=== PATIENT | female | born 1950 | race Caucasian/White ===

== ENCOUNTER → 2022-05-29 | Outpatient (CLI) | payer OTHER, MEDICARE, SELFPAY ==
[2022-05-29 10:52] LABS: Absolute Lymphocyte Count 2.28 X10^3/uL (0.83-4.51); Absolute Neutrophil Count 3.3 X10^3/uL (2.0-7.7); Basophil# 0.11 X10^3/uL; Basophil% 1.6 % (0-1); Eosinophil# 0.66 X10^3/uL; Eosinophils% 9.6 % (0-5); Hematocrit 37.5 % (37-47); Hemoglobin 12.3 g/dL (12.0-15.0); Lymphocyte # 2.28 X10^3/ul (0.83-4.51); Mean Corp Hgb Conc 32.8 g/dL (32-36); Mean Corpuscular Hgb 29.6 pg (27.0-32.0); Mean Corpuscular Volume 90.4 fL (81-99); Monocyte# 0.53 X10^3/uL; Monocyte% 7.7 % (0-10); NRBC Flagged by Analyzer 0 % (0-5); Neutrophil % 47.7 % (47-70); Platelet Count 264 K/mm3 (150-450); RBC Distribution Width CV 13.2 % (11.6-14.6); RBC Distribution Width SD 43.8 fl (35.1-43.9); Red Blood Count 4.15 M/mm3 (4.2-5.4); White Blood Count 6.9 K/mm3 (4.4-11.0)
[2022-05-29 10:55] LABS: Erythrocyte Sedimentation Rate 5 mm/hr (0-30)
[2022-05-29 11:27] LABS: ALB/GLOB Ratio 1.1 RATIO (0.9-2.4); AST(SGOT) 15 U/L (15-37); Alanine Aminotransfer ALT/SGPT 16 U/L (13-56); Albumin, Serum 3.9 g/dL (3.2-5.0); Alkaline Phosphatase 71 U/L (45-117); Anion Gap 5 (5-15); BUN 12 mg/dL (7-18); BUN/Creat Ratio 17.4 RATIO (10-20); CRP < 2.90 mg/L (0.0-3.0); Calcium,Total 9.3 mg/dL (8.5-10.1); Chloride 103 mmol/L (98-107); Creatinine, Serum 0.69 mg/dL (0.55-1.02); EST Glomerular Filtration Rate 89 mL/min (>60); Est Glom Filt Rate - Afr Amer 107 mL/min (>60); Globulin 3.6 g/dL (2.2-4.2); Glucose 92 mg/dL (74-106); LDH 146 U/L (84-246); Potassium 4.2 mmol/L (3.5-5.1); Protein, Total 7.5 g/dL (6.4-8.2); Sodium Level 139 mmol/L (136-145)
[2022-05-29 11:28] LABS: Rubella IgG Reactive (Nonreactive)
[2022-05-30 16:09] LABS: Anti-Centromere B Ab <0.2 AI (0.0-0.9); Anti-Chromatin <0.2 AI (0.0-0.9); Anti-Jo <0.2 AI (0.0-0.9); Anti-Scleroderma-70 AB <0.2 AI (0.0-0.9); RNP Ab <0.2 AI (0.0-0.9); SJOGREN'S Anti-SS-A test < 0.2 AI (0.0-0.9); SJOGREN'S Anti-SS-B test < 0.2 AI (0.0-0.9); Smith Ab <0.2 AI (0.0-0.9)
[2022-05-30 18:30] LABS: Anti-dsDNA Ab <1 IU/mL (0-9)
[2022-06-01 15:08] LABS: Endomysial Antibody IgA Negative (Negative)
[2022-06-01 16:46] LABS: Immunoglobulin A 187 mg/dL (64-422); t-Transglutaminase IgA <2 U/mL (0-3)
[2022-06-02 15:08] LABS: Alpha-1-Globulins 0.2 g/dL (0.0-0.4); Alpha-2-Globulins 0.9 g/dL (0.4-1.0); Cytoplasmic Ab (C-ANCA) <1:20 titer (Neg:<1:20); Gamma Globulin 1.2 g/dL (0.4-1.8); Immunoglobulin A 197 mg/dL (64-422); Immunoglobulin E 35 IU/mL (6-495); Immunoglobulin G 1120 mg/dL (586-1602); Immunoglobulin M 42 mg/dL (26-217); PROEL- TOTAL PROTEIN 7.2 g/dL (6.0-8.5); QNTFERON TB Mitogen Value > 10.00 IU/mL (.); QNTFERON TB Nil Value 0.04 IU/mL (.); QNTFERON TB1+ Ag Value 0.11 IU/mL (.); QNTFERON TB2+ Ag Value 0.12 IU/mL (.)
[2022-06-03 08:13] LABS: B. pertussis IgG 5.57 index (0.00-0.94); Mumps Antibody, IgM < 0.80 AU (0.00-0.79); Perinuclear Ab (P-ANCA) <1:20 titer (Neg:<1:20); QNTIFERON TB Positive Criteria Negative (Negative); V-Zoster IgG (Immunity) 1106 index (Immune >165)
== END | disposition home or self-care (01) ==
PROVIDERS: PCP Family Medicine; Referring Provider Internal Medicine Gastroenterology; Visit Provider Internal Medicine Gastroenterology
DX: K51.90 Ulcerative colitis, unspecified, without complications (principal)
CPT/HCPCS: 36415; 80053; 82784; 82785; 83516; 83615; 84165; 85025; 85652; 86140; 86225; 86235; 86255; 86256; 86334; 86480; 86615; 86735; 86762; 86787

== ENCOUNTER → 2022-06-08 | Outpatient (CLI) | payer OTHER, MEDICARE, SELFPAY ==
[2022-06-11 13:05] LABS: Calprotectin, Stool 49 ug/g (0-120)
[2022-06-13 08:54] LABS: Pancreatic Elastase, Fecal 184 (>200)
== END | disposition home or self-care (01) ==
PROVIDERS: PCP Family Medicine; Referring Provider Internal Medicine Gastroenterology; Visit Provider Internal Medicine Gastroenterology
DX: K51.90 Ulcerative colitis, unspecified, without complications (principal)
CPT/HCPCS: 82653; 83630; 83993; 87177; 87209; 87329

== ENCOUNTER 2022-06-19 19:35 | Emergency (ER) | payer MEDICARE, OTHER, SELFPAY ==
[2022-06-19 19:36] VITALS: BP 142/104; PULSE 78; RESP 16; TEMP 36.6; O2SAT 98; BMI 26.9
--- NOTE | 2022-06-19 21:00 | ED.RN ---
AT APPROX 1999 PT NOTIFIED THIS RN THAT ALL PAIN HAD SUBSIDED, NOW THINKS SYMPTOMS MAY BE RELATED TO NEW MEDICATION. STATES HER SYMPTOMS ARE LISTED IN MED HANDOUT SIDE EFFECTS
== END 2022-06-19 20:00 | disposition left against medical advice (07) ==
LOC: ED 21:08
PROVIDERS: PCP Family Medicine
DX: Z53.21 Procedure and treatment not carried out due to patient leaving prior to being seen by health care provider (principal)

== ENCOUNTER → 2022-07-06 | Outpatient (CLI) | payer OTHER, MEDICARE, SELFPAY ==
--- NOTE | 2022-07-06 13:12 | MRI_ITS ---
STUDY: MR PELVIS WITH T WITHOUT CONTRAST REASON FOR EXAM: Female, 71 years old. Rectal and bladder prolapse. TECHNIQUE: Standardized fat and water weighted pulse sequences were obtained in all 3 orthogonal planes, pre-and post contrast administration. IV 15cc clariscan was administered for the contrast portion of the examination. COMPARISON: None. FINDINGS: Urinary bladder is grossly normal. There is minimal prolapse below Drawn between the inferior aspect of the symphysis pubis and the tip of the coccyx. This extends 8 mm below this line. There is no evidence of mass. Normal visualized small intestine. There is evidence of rectal prolapse which extends 4.8 cm below the above-mentioned alignment. The patient is status post hysterectomy. There is vaginal prolapse of 2 cm. There is no pelvic fluid. There is soft tissue masses along the bilateral pelvic sidewalls thought to be retained ovaries. Normal visualized pelvic arteries. Normal osseous structures. Normal abdominal wall. MRI/Pelvis W/WO Contrast IMPRESSION: 1. Evidence of bladder prolapse, vaginal prolapse and rectal prolapse as above. 2. Status post hysterectomy. There are retained ovaries. Electronically Signed: Loco Munoz DO at 20:06 EDT Reading Location ID and State: [address] [place] [address] Tel [phone], Service support ,
[2022-07-06 17:55] LABS: EGFR FINGERSTICK > 60.0000 mL/min (>60)
== END | disposition home or self-care (01) ==
PROVIDERS: PCP Family Medicine; Referring Provider Internal Medicine Gastroenterology; Visit Provider Internal Medicine Gastroenterology
DX: K51.90 Ulcerative colitis, unspecified, without complications (principal)
CPT/HCPCS: 72197; A9575

== ENCOUNTER 2022-07-23 05:08 | Day surgery (SDC) | payer OTHER, MEDICARE, SELFPAY ==
[2022-07-23] VITALS (7 sets, daily range): BP systolic 109–164; BP diastolic 62–76; PULSE 54–64; RESP 16–18; TEMP 36.1–36.6; O2SAT 96–100; BMI 25.9
--- NOTE | 2022-07-23 | IMM_PTH ---
PATIENT: DEANDRE MONTIEL LOC: EN U#:[id number] AGE/SX: 71/F ROOM: RE07/23/[address]: Dr. Miguel A Godoy DO : 1950 BED: DIS: 07/23/2022 SPEC #: [id number] RECD: 07/24/22 13:30 STATUS: NEGRO REQ #: [id number] YENIFER: 07/23/22 00:[address]: Miguel A Godoy DEPT: IMMUNOHISTOCHEMISTRY RECD BY: Francine Cifuentes ENTERED: 07/24/22 13:31 SP TYPE: IMMUNO OTHR DR: Dr. Juan Shearer MD Tissues: B - Esophagus, NOS Procedures: P53 (initial) KI-67 (add) PHYSICIAN & INSTITUTION [place] [address] SPECIMEN INFORMATION: Tissue Source: B ? Distal esophagus Clinical Info: Ulcerative colitis, GERD Specimen Number: [id number] CPT code: 30133, 50910 METHODOLOGY: Deparaffinized sections of prefer/formalin-fixed tissue or PAP/DQ stained slides are incubated with monoclonal/polyclonal antibodies/oligonucleotide probes. Localization is made via biotin free immunoperoxidase method. Appropriate controls are performed and reacted as expected. Results on target cell population are indicated in the following table: RESULTS: ANTIBODY / CLONE RESULT Block B P53 (DO-7) negative (null pattern) Ki-67 (30-9) positive, very low These tests were developed and their performance characteristics determined by [facility]. They may not have been cleared or approved by the U.S. Food and Drug Administration. The FDA has determined that such clearance or approval is not necessary. The above immunohistochemical/dualISH markers are ordered and reviewed by the Pathologist. INTERPRETATION: B. Distal esophagus, biopsy: Negative for dysplasia. SJ:huseyin 07/27/2022
[2022-07-23] MEDS: Lactated Ringers 1,000 ML 15 ML IV (05:45)
[2022-07-23 06:16] LABS: Bedside Glucose 129 mg/dL (74-106)
--- NOTE | 2022-07-23 06:30 | COLBX_PTH ---
PATIENT: DEANDRE MONTIEL LOC: EN U#:[id number] AGE/SX: 71/F ROOM: RE07/23/[address]: Dr. Miguel A Godoy DO : 1950 BED: DIS: 07/23/2022 SPEC #: [id number] RECD: 07/23/22 10:41 STATUS: NEGRO CLIFF #: [id number] YENIFER: 07/23/22 06:[address]: Miguel A Godoy DEPT: SURGICAL PATHOLOGY RECD BY: Thomas Wise ENTERED: 07/23/22 12:14 SP TYPE: COLON BX OTHR DR: Dr. Juan Shearer MD Tissues: A - Duodenum, NOS B - Esophagus, NOS C - Ileum, NOS D - Cecum, NOS E - Ascending colon F - Transverse colon G - Descending colon H - Sigmoid colon biopsy I - Rectum, NOS Procedures: Special Stain Group II Surgery Specimen Level IV Alcian Blue/PAS (control) HEADER OPERATION: Colonoscopy with biopsy, polypectomy, EGD with biopsies PRE-OP DIAGNOSIS: Ulcerative colitis, GERD TISSUE SUBMITTED: A - Duodenum biopsy, B - Distal esophagus biopsy, C - Terminal ileum, D - Cecal polyp, E - Ascending colon biopsy, F - Transverse colon biopsy, G - Descending colon biopsy, H - Sigmoid colon biopsy, I - Rectum biopsy MICROSCOPIC DIAGNOSIS A. Duodenum, biopsy: Fragments of duodenal mucosa, no pathologic diagnosis. B. Distal esophagus, biopsy: Fragments of gastroesophageal mucosa with focal intestinal metaplasia (goblet cell metaplasia), consistent with Alexander's esophagus. Chronic inflammation. Negative for dysplasia. See comment. C. Terminal ileum, biopsy: Fragments of small intestinal mucosa, no pathologic diagnosis. D. Cecal polyp, biopsy: Fragments of tubular adenoma. E. Ascending colon, biopsy: Fragments of colonic mucosa, no pathologic diagnosis. F. Transverse colon, biopsy: Fragments of colonic mucosa, no pathologic diagnosis. G. Descending colon, biopsy: Fragments of colonic mucosa, no pathologic diagnosis. H. Sigmoid colon, biopsy: Fragments of colonic mucosa, no pathologic diagnosis. I. Rectum, biopsy: Fragments of colonic mucosa, no pathologic diagnosis. SJ:huseyin 07/24/2022 COMMENT B. Alcian blue/PAS stain with matched control is used in the evaluation of the specimen. Immunohistochemistry ([id number]) for P53 and Ki-67 will be performed and results will be reported separately. Correlation with clinical, endoscopic findings and appropriate follow up are necessary. MICROSCOPIC DESCRIPTION Slides are reviewed. GROSS DESCRIPTION A - Received in fixative is one container labeled with the patient's name and designated duodenum biopsy. The specimen consists of multiple irregular fragments of light gomez soft tissue that in aggregate measure 0.7 x 0.5 x 0.1 cm. The specimen is totally submitted in one cassette. B - Received in fixative is one container labeled with the patient's name and designated distal esophagus. The specimen consists of multiple irregular fragments of light gomez soft tissue that in aggregate measure 0.5 x 0.2 x 0.1 cm. The specimen is totally submitted in one cassette. C - Received in fixative is one container labeled with the patient's name and designated terminal ileum. The specimen consists of two irregular fragments of light gomez soft tissue that in aggregate measure 0.6 x 0.3 x 0.1 cm. The specimen is totally submitted in one cassette. D - Received in fixative is one container labeled with the patient's name and designated cecal polyp. The specimen consists of multiple irregular fragments of light gomez soft tissue that in aggregate measure 1.0 x 0.2 x 0.1 cm. The specimen is totally submitted in one cassette. E - Received in fixative is one container labeled with the patient's name and designated ascending colon biopsy. The specimen consists of multiple irregular fragments of light gomez soft tissue that in aggregate measure 1.0 x 0.5 x 0.1 cm. The specimen is totally submitted in one cassette. F - Received in fixative is one container labeled with the patient's name and designated transverse colon biopsy. The specimen consists of multiple irregular fragments of light gomez soft tissue that in aggregate measure 2.0 x 1.0 x 0.1 cm. The specimen is totally submitted in one cassette. G - Received in fixative is one container labeled with the patient's name and designated descending colon biopsy. The specimen consists of multiple irregular fragments of light gomez soft tissue that in aggregate measure 1.5 x 1.0 x 0.1 cm. The specimen is totally submitted in one cassette. H - Received in fixative is one container labeled with the patient's name and designated sigmoid colon biopsy. The specimen consists of multiple irregular fragments of light gomez soft tissue that in aggregate measure 1.5 x 0.1 x 0.1 cm. The specimen is totally submitted in one cassette. I - Received in fixative is one container labeled with the patient's name and designated rectum biopsy. The specimen consists of multiple irregular fragments of light gomez soft tissue that in aggregate measure 1.0 x 1.0 x 0.1 cm. The specimen is totally submitted in one cassette. / AM:huseyin 07/23/2022 TC:3 CPT: 49438 x9, 17946
--- NOTE | 2022-07-23 06:32 | PCM.HP.BLA ---
History and Physical Date of Admission: 07/23/22 71 F who presents to the office today for PMH CAD, anxiety/depression, heart murmur, NC, subdural hematoma, obstructive cardiomyopathy, HTN, neurogenic bladder, osteoarthritis, RA, DMII with polyneuropathy. PCP OV 08.14.21 for issues to include increased diarrhea frequency for 3-4 months. ?Biochemical? CMP, CBC, Urine without pertinent abnormality. ? Triglycerides H171, A1c H6.8, VLDL H34 *BGI established 05.29.22. History of ulcerative colitis diagnosed at age 29; she had been having issues since puberty and it is suspected this was the cause at that time. She was diagnosed following miscarriage r/t underlying medical conditions and was found to have UC in this workup. History asacol, hydrocor azulfadine, prednisone used previously but this upset her stomach. She experienced an improvement of rectal bleeding and did not seek further management. During time without treatment she had Q6M colonoscopies with small area of inflammation. During this time, she had minimal symptoms, but did not resolve completely. Current symptoms include loose stools varying up to ten times a day with recent involvement of nocturnal presentation, rectal bleeding is noted (she feels r/t hemorrhoids), abdominal pain noted approximately a month prior, infrequent nausea without emesis. GERD has also been a historical issue with a history of gastric ulcers. ? Last colonoscopy with one small area of inflammation. History of polyps. ROS Const Constitutional: No anorexia, fatigue, fever(s), weight change or sleep problems Eyes Eyes: No change in vision ENT ENT: No abnormal hearing, difficulty swallowing, mouth lesions, tongue swelling or throat swelling Resp Respiratory: No cough or shortness of breath Cardio Cardiology: No chest pain at rest, chest pain with exertion, shortness of breath or dyspnea on exertion Gastro GI: No difficulty swallowing Genitourinary-Female: No difficulty urinating or burning urination Musc Musculoskeletal: No joint pain, joint swelling, muscle weakness or decreased muscle mass Skin Skin: No hair loss in leg, yellowing of the eye, itchy eyes, rash, skin ulcer or skin swelling Neuro Neurology: No abnormal hearing, abnormal movements, confusion, unsteady gait/balance or memory loss Psych Psychiatric: No anxiety, No confusion and No memory loss Endo Endocrine: No fatigue or weight change Aller/Imm Allergy/Immunologic: No itchy eyes, throat swelling or tongue swelling Thomas/Lymp Hematologic/Lymphatic: No easy bleeding, easy bruising or enlarged lymph nodes Exam Const General: cooperative and comfortable Nutritional Appearance: average body habitus and well nourished [facility] Head: normal to inspection Ears: hearing grossly normal bilaterally Nose: external nose normal Face and sinus: normal facial exam Mouth: oral mucosae normal Throat: posterior oropharynx normal Eyes General: appearance normal, both eyes and all related structures Neck Neck: normal visual inspection Chest Chest palpation & inspection: normal inspection of the chest and normal palpation of entire chest wall Resp Effort & Inspection: normal respiratory effort Auscultation: Bilateral: Clear to Auscultation Cardio Palpation: normal PMI Rate: regular rate Rhythm: regular rhythm GI Inspection: normal to inspection Auscultation: normal bowel sounds Percussion: normal to percussion Palpation: no hepatosplenomegaly Skin General: no rashes or lesions noted Neuro General: patient alert Extrem General: normal to inspection Psych Affect: normal affect Quality Reporting Tobacco Screening ([facility] 138) Smoking Status: Never smoker Assessment and Plan Assessment and Plan (1) Ulcerative colitis: ?Status:?Chronic ?Plan: History of ulcerative colitis which sounds like ulcerative proctitis.? She is having more than 6-8 bowel movements a day.? She has not been tested for infection.? She is on mesalamine but that does not, diarrhea.? She has tried topical therapy which is also been unsuccessful.? She will need to have a colonoscopy to evaluate his lower GI tract.? She was explained alternatives, risk, benefits including outstanding bleeding, infection, sepsis, perforation, need for urgent .? Show an ASA of 1. (2) GERD (gastroesophageal reflux disease): ?Status:?Chronic ?Plan: Continue famotidine as needed.? When she undergoes upper endoscopy we will evaluate her for Alexander's esophagus. ? ? ? Orders: Orders Comprehensive Metabolic Profil Today K51.90 - Ulcerative colitis, unspecified, without complications ? CRP Today K51.90 - Ulcerative colitis, unspecified, without complications ? LDH Today K51.90 - Ulcerative colitis, unspecified, without complications ? CBC W/Diff, Automated Today - Ulcerative colitis, unspecified, without complications ? Erythrocyte Sed Rate Today - Ulcerative colitis, unspecified, without complications ? NAFISA Comprehensive Panel Today - Ulcerative colitis, unspecified, without complications ? Calprotectin, Stool Today - Ulcerative colitis, unspecified, without complications ? OVA+PARA w/Giardia EIA [id number] Today - Ulcerative colitis, unspecified, without complications ? CDIFF (PCR) Today - Ulcerative colitis, unspecified, without complications ? ENTERIC PATHOGEN PANEL STOOL Today - Ulcerative colitis, unspecified, without complications, K58.9 - Irritable bowel syndrome without diarrhea ? Stool Lactoferrin/WBC Today - Ulcerative colitis, unspecified, without complications ? ANCA Today - Ulcerative colitis, unspecified, without complications ? Celiac Disease Profile Today - Ulcerative colitis, unspecified, without complications ? Immunoglobulins G/A/M/E Today - Ulcerative colitis, unspecified, without complications ? TIFFANIE + Protein Elect, Serum Today - Ulcerative colitis, unspecified, without complications ? Pancreatic Elastase, Fecal Today - Ulcerative colitis, unspecified, without complications ? Miscellaneous Lab Procedure Today - Ulcerative colitis, unspecified, without complications ? Abdomen/Pelvis WITH Contrast Today - Ulcerative (chronic) proctitis with unspecified complications ? Pelvis W/WO Contrast Today - Ulcerative colitis, unspecified, without complications ? Rubella IgG Today - Ulcerative colitis, unspecified, without complications ? Mumps Antibody, IgM Today - Ulcerative colitis, unspecified, without complications ? B. pertussis IgG Today - Ulcerative colitis, unspecified, without complications ? Quantiferon TB-Gold+ Today - Ulcerative colitis, unspecified, without complications ? V-Zoster IgG (Immunity) Today - Ulcerative colitis, unspecified, without complications ? I have examined the patient and the H&P has been reviewed. There are no clinical changes since date of exam.
--- NOTE | 2022-07-23 07:11 | OP.CCLET_ITS ---
07/23/2022 Juan Shearer MD Re : Upper GI endoscopy procedure for Slime Magana Dear Dr. Shearer This procedure was performed on July. My impressions and recommendations are as follows: Impressions : - Z-line irregular, 37 cm from the incisors. Biopsied. - Normal stomach. - Erythematous duodenopathy. Biopsied. Recommendations : - Discharge patient to home. - Resume previous diet. - Continue present medications. - Await pathology results. My findings are described in the full procedure note, which is enclosed. If I can be of further assistance, please feel free to contact me at . Sincerely, Miguel A Godoy, 07/23/2022 7:10:05 AM This report has been signed electronically.
--- NOTE | 2022-07-23 07:11 | OP.EGD_ITS ---
Patient Name: Slime Magana Procedure Date: 07/23/2022 6:16 AM Date of : 1950 Age: 71 Procedure: Upper GI endoscopy Indications: Heartburn Providers: Miguel A Godoy DO Referring MD: Miguel A Godoy DO Medicines: Monitored Anesthesia Care Patient Profile: This is a 71 year old female. Refer to note in patient chart for documentation of history and physical. Patient has symptoms of chronic heartburn and chronic nausea. Complications: No immediate complications. Procedure: Pre-Anesthesia Assessment: - Prior to the procedure, a History and Physical was performed, and patient medications and allergies were reviewed. The risks and benefits of the procedure and the sedation options and risks were discussed with the patient. All questions were answered and informed consent was obtained. Patient identification and proposed procedure were verified by the physician in the pre-procedure area. Mental Status Examination: normal. Respiratory Examination: clear to auscultation. CV Examination: normal. Prophylactic Antibiotics: The patient does not require prophylactic antibiotics. Prior Anticoagulants: The patient has taken no previous anticoagulant or antiplatelet agents. After reviewing the risks and benefits, the patient was deemed in satisfactory condition to undergo the procedure. The anesthesia plan was to use monitored anesthesia care (MAC). Immediately prior to administration of medications, the patient was re-assessed for adequacy to receive sedatives. The heart rate, respiratory rate, oxygen saturations, blood pressure, adequacy of pulmonary ventilation, and response to care were monitored throughout the procedure. The physical status of the patient was re-assessed after the procedure. After obtaining informed consent, the endoscope was passed under direct vision. Throughout the procedure, the patient's blood pressure, pulse, and oxygen saturations were monitored continuously. The Colonoscope was introduced through the mouth, and advanced to the second part of duodenum. The upper GI endoscopy was accomplished without difficulty. The patient tolerated the procedure well. Scope In: 6:41:14 AM Scope Out: 6:45:02 AM Total Procedure Duration Time 0 hours 3 minutes 48 seconds Findings: The Z-line was irregular and was found 37 cm from the incisors. Biopsies were taken with a cold forceps for histology. Verification of patient identification for the specimen was done. Estimated blood loss was minimal. The entire examined stomach was normal. The cardia and gastric fundus were normal on retroflexion. Diffuse mildly erythematous mucosa without active bleeding and with no stigmata of bleeding was found in the duodenal bulb. Biopsies were taken with a cold forceps for histology. Verification of patient identification for the specimen was done. Estimated blood loss was minimal. Impression: - Z-line irregular, 37 cm from the incisors. Biopsied. - Normal stomach. - Erythematous duodenopathy. Biopsied. Recommendation: - Discharge patient to home. - Resume previous diet. - Continue present medications. - Await pathology results. Procedure Code(s): --- Professional --- 41823, Esophagogastroduodenoscopy, flexible, transoral; with biopsy, single or multiple CPT copyright 2017 [employer]. All rights reserved. The codes documented in this report are preliminary and upon electrical foreman review may be revised to meet current compliance requirements. Miguel A Godoy DO 07/23/2022 7:10:05 AM This report has been signed electronically. Number of Addenda: 0 Note Initiated On: 07/23/2022 6:16 AM
--- NOTE | 2022-07-23 07:15 | OP.COLON_ITS ---
Patient Name: Slime Magana Procedure Date: 07/23/2022 6:45 AM Date of : 1950 Age: 71 Procedure: Colonoscopy Indications: Ulcerative colitis Providers: Miguel A Godoy DO Referring MD: Miguel A Godoy DO Medicines: Monitored Anesthesia Care Patient Profile: This is a 71 year old female. Refer to note in patient chart for documentation of history and physical. Patient has symptoms of chronic heartburn and chronic nausea. Last Colonoscopy: date unknown. Unable to locate last colonoscopy report. Complications: No immediate complications. Procedure: Pre-Anesthesia Assessment: - Prior to the procedure, a History and Physical was performed, and patient medications and allergies were reviewed. The risks and benefits of the procedure and the sedation options and risks were discussed with the patient. All questions were answered and informed consent was obtained. Patient identification and proposed procedure were verified by the physician in the pre-procedure area. Mental Status Examination: normal. Respiratory Examination: clear to auscultation. CV Examination: normal. Prophylactic Antibiotics: The patient does not require prophylactic antibiotics. Prior Anticoagulants: The patient has taken no previous anticoagulant or antiplatelet agents. After reviewing the risks and benefits, the patient was deemed in satisfactory condition to undergo the procedure. The anesthesia plan was to use monitored anesthesia care (MAC). Immediately prior to administration of medications, the patient was re-assessed for adequacy to receive sedatives. The heart rate, respiratory rate, oxygen saturations, blood pressure, adequacy of pulmonary ventilation, and response to care were monitored throughout the procedure. The physical status of the patient was re-assessed after the procedure. After I obtained informed consent, the scope was passed under direct vision. Throughout the procedure, the patient's blood pressure, pulse, and oxygen saturations were monitored continuously. The Colonoscope was introduced through the anus and advanced to the terminal ileum. The colonoscopy was performed without difficulty. The patient tolerated the procedure well. The quality of the bowel preparation was adequate. Scope In: 6:48:04 AM Scope Withdrawal Time 0 hours 14 minutes 2 seconds Scope Out: 7:05:25 AM Total Procedure Duration Time 0 hours 17 minutes 21 seconds Findings: The perianal and digital rectal examinations were normal. Inflammation was found as patches surrounded by normal mucosa in the rectum, in the recto-sigmoid colon, in the sigmoid colon, in the descending colon, in the splenic flexure and in the transverse colon. This was graded as Meier Score 1 (mild, with erythema, decreased vascular pattern, mild friability), and when compared to the previous examination, the findings are in remission. Biopsies were taken with a cold forceps for histology. Verification of patient identification for the specimen was done. Estimated blood loss was minimal. Two sessile polyps were found in the cecum. The polyps were 1 to 2 mm in size. These polyps were removed with a hot snare. Resection and retrieval were complete. Verification of patient identification for the specimen was done. Estimated blood loss was minimal. A patchy area of the terminal ileum was congested. Biopsies were taken with a cold forceps for histology. Verification of patient identification for the specimen was done. Estimated blood loss was minimal. Impression: - Mild (Meier Score 1) ulcerative colitis, in remission since the last examination. Biopsied. - Two 1 to 2 mm polyps in the cecum, removed with a hot snare. Resected and retrieved. - Congested mucosa in the terminal ileum. Biopsied. Recommendation: - Discharge patient to home. - Resume previous diet. - Continue present medications. - Await pathology results. - Repeat colonoscopy for surveillance. Procedure Code(s): --- Professional --- 34115, Colonoscopy, flexible; with removal of tumor(s), polyp(s), or other lesion(s) by snare technique 79259, 59, Colonoscopy, flexible; with biopsy, single or multiple CPT copyright 2017 [employer]. All rights reserved. The codes documented in this report are preliminary and upon administrative resources associate review may be revised to meet current compliance requirements. Miguel A Godoy DO 07/23/2022 7:15:03 AM This report has been signed electronically. Number of Addenda: 0 Note Initiated On: 07/23/2022 6:45 AM
--- NOTE | 2022-07-23 07:16 | OP.CCLET_ITS ---
07/23/2022 Juan Shearer MD Re : Colonoscopy procedure for Slmie Magana Dear Dr. Shearer This procedure was performed on July. My impressions and recommendations are as follows: Impressions : - Mild (Meier Score 1) ulcerative colitis, in remission since the last examination. Biopsied. - Two 1 to 2 mm polyps in the cecum, removed with a hot snare. Resected and retrieved. - Congested mucosa in the terminal ileum. Biopsied. Recommendations : - Discharge patient to home. - Resume previous diet. - Continue present medications. - Await pathology results. - Repeat colonoscopy for surveillance. My findings are described in the full procedure note, which is enclosed. If I can be of further assistance, please feel free to contact me at . Sincerely, Miguel A Godoy, 07/23/2022 7:15:03 AM This report has been signed electronically.
== END 2022-07-23 08:08 | disposition home or self-care (01) ==
LOC: EN 05:09 → AC 05:10
PROVIDERS: PCP Family Medicine; Referring Provider Family Medicine; Visit Provider Internal Medicine Gastroenterology
PROC: 0DJD8ZZ Inspection of Lower Intestinal Tract, Via Natural or Artificial Opening Endoscopic (ICD-10-PCS; CPT 45378; principal; 2022-07-23 06:25)
DX: K51.90 Ulcerative colitis, unspecified, without complications (principal); E11.9 Type 2 diabetes mellitus without complications; K22.70 Barrett's esophagus without dysplasia; D12.0 Benign neoplasm of cecum; I10 Essential (primary) hypertension; Z79.899 Other long term (current) drug therapy; K21.00 Gastro-esophageal reflux disease with esophagitis, without bleeding; E78.00 Pure hypercholesterolemia, unspecified; Z79.84 Long term (current) use of oral hypoglycemic drugs
CPT/HCPCS: 45385; 45380; 43239; 82962; 88305; 88313; 88341; 88342; J7120; J2405

== ENCOUNTER → 2022-07-31 | Outpatient (CLI) | payer OTHER, MEDICARE, SELFPAY ==
[2022-08-03 12:08] LABS: Anti-Mitochondrial AB <20.0 Units (0.0-20.0)
[2022-08-03 16:09] LABS: Anti-Smooth Muscle ABS 11 Units (0-19); Cytoplasmic Ab (C-ANCA) <1:20 titer (Neg:<1:20)
== END | disposition home or self-care (01) ==
PROVIDERS: PCP Family Medicine; Referring Provider Internal Medicine Gastroenterology; Visit Provider Internal Medicine Gastroenterology
DX: R76.8 Other specified abnormal immunological findings in serum (principal)
CPT/HCPCS: 36415; 83516; 86256

== ENCOUNTER 2023-09-03 16:23 | Observation (INO) | payer MEDICARE, SELFPAY ==
[2023-09-03 15:47] VITALS: BMI 25.5
--- NOTE | 2023-09-03 16:22 | ECHOD_ITS ---
Reason For Study: Chest Pain Procedure This was a 2D Doppler, Color Flow transthoracic echocardiogram. Exam performed portable in patient room. Left Ventricle Normal LV size. The estimated ejection fraction is 70 %. Unable to assess diastolic dysfunction. No regional wall motion abnormalities noted. Right Ventricle Normal RV size. Normal systolic function. Atria Normal left atrium. Normal right atrium. No doppler evidence for ASD. Mitral Valve There is no mitral valve stenosis. Trivial mitral valve insufficiency. Tricuspid Valve There is no tricuspid stenosis. Trivial tricuspid valve insufficiency. Unable to estimate RV systolic pressure due to insufficient tricuspid regurgitant envelope. Aortic Valve Trisinus/trileaflet aortic valve. Mild to moderate aortic stenosis. Trivial aortic valve insufficiency. Pulmonic Valve There is no pulmonic valvular stenosis. No pulmonic valve insufficiency. Great Vessels Normal aortic root. Pericardium/Pleural No pericardial effusion. MMode/2D Measurements & Calculations LVIDd: 4.2 cm IVSd: 1.8 cm LVOT diam: 2.0 cm LVIDs: 2.4 cm LVPWd: 0.96 cm LVOT area: 3.1 cm2 RVDd: 3.4 cm FS: 42.0 % Ao root diam: 3.2 cm LAV(MOD-bp): 51.8 ml LVAd ap4: 21.6 cm2 ACS: 1.1 cm LAV(MOD-bp) Indexed: 28.7 ml/m2 LVLd ap4: 7.4 cm LAV(MOD-sp2): 49.7 ml EDV(MOD-sp4): 52.3 ml LAV(MOD-sp4): 52.0 ml EDV(sp4-el): 53.7 ml LVAs ap4: 9.9 cm2 LVLs ap4: 6.3 cm ESV(MOD-sp4): 14.1 ml ESV(sp4-el): 13.4 ml EF(MOD-sp4): 73.0 % EF(sp4-el): 75.1 % SV(MOD-sp4): 38.2 ml SV(sp4-el): 40.3 ml LA A4 area: 18.0 cm2 RA A4 area: 7.1 cm2 TAPSE: 1.9 cm Time Measurements MV dec time: 0.22 sec Doppler Measurements & Calculations MV E max jef: 118.3 cm/sec Lat Peak E' Jef: 6.9 cm/sec Med Peak E' Jef: 5.6 cm/sec MV A max jef: 135.2 cm/sec E/E' lat: 17.3 E/E' med: 21.0 MV E/A: 0.87 MV V2 max: 138.3 cm/sec Ao V2 max: 306.4 cm/sec MV max P.7 mmHg MV dec slope: 527.2 cm/sec2 Ao max P.6 mmHg MV V2 mean: 98.5 cm/sec Ao V2 mean: 205.0 cm/sec MV mean P.1 mmHg Ao mean P.1 mmHg MV V2 VTI: 33.7 cm Ao V2 VTI: 58.7 cm AV (velocity ratio): 0.63 MVA(VTI): 3.5 cm2 GARRY(I,D): 2.0 cm2 GARRY(V,D): 1.6 cm2 LV V1 max: 154.2 cm/sec SV(LVOT): 116.4 ml PA V2 max: 105.9 cm/sec LV V1 max P.5 mmHg LV V1 mean P.2 mmHg LV V1 mean: 120.6 cm/sec LV V1 VTI: 37.1 cm TR max jef: 264.2 cm/sec TR max P.9 mmHg ECHO/Echo Complete Interpretation Summary The estimated ejection fraction is 70 %. Unable to assess diastolic dysfunction. Trivial mitral valve insufficiency. Mild to moderate aortic stenosis. Trivial aortic valve insufficiency. Ordering Physician: Jacqueline Davis Referring Physician: Juan Shearer Performed By: Cristina Robin RDCS, RVT
--- NOTE | 2023-09-03 16:24 | EKG12_ITS ---
Test Reason : IRREGULAR Blood Pressure : / mmHG Vent. Rate : 058 BPM Atrial Rate : 058 BPM P-R Int : 154 ms QRS Dur : 156 ms QT Int : 494 ms P-R-T Axes : -06 -19 137 degrees QTc Int : 484 ms Sinus bradycardia Left bundle branch block Abnormal ECG No previous ECGs available Confirmed by JOSE LOUISE, YURIDIA ([id number]), newspaper or periodical editor DINA STANFORD ([id number]) on 09/07/2023 9:28:16 AM Referred By: Confirmed By:YURIDIA GARCIA MD
[2023-09-03 16:43] VITALS: O2SAT 97
[2023-09-03 16:50] VITALS: BP 115/101; PULSE 58; RESP 18; TEMP 36.5; O2SAT 98
--- NOTE | 2023-09-03 16:53 | PCM.HP.STD ---
HPI - General General Date of Admission: 09/03/23 Date of Service: 09/03/23 Chief Complaint: Chest pain HPI Narrative DEANDRE MONTIEL, is a 72 F with past medical history of coronary artery disease, hypertrophic obstructive cardiomyopathy, ulcerative colitis in remission, uterine prolapse, GERD, type 2 diabetes, who presents to [facility] as a transfer from outside emergency department for evaluation of chest pain. She was apparently doing well till this morning around 11 AM noticed extreme pressure around her chest and a sensation of passing out when she called her friend and went to the ED for further evaluation. She has had similar concerns in the past and was being evaluated at the [facility] for her symptoms and recently underwent a stress test around 2 weeks back which is not positive for any ischemia at the time. For her hypertrophic cardiomyopathy she takes metoprolol 50 mg twice daily and has been taking that since her recent discharge. She is also on diltiazem 120 mg extended release. During her evaluation in the ED her initial high-sensitivity troponin was 110 was reduced to 90 on subsequent evaluation. At the time of discussion with the ED physician, there were concerns that given her history of prior coronary artery disease she needs further inpatient evaluation and workup. For this reason she was being transferred to [facility]. [facility] Medical History Anxiety and depression Arthritis Atelectasis Back pain CAD (coronary artery disease) Cardiology follow-up encounter Chronic cough Depression Diabetes Diarrhea Gastric reflux Heart murmur High cholesterol History of echocardiogram History of irregular heartbeat History of NE (myocardial infarction) History of stress test History of subdural hematoma HOCM (hypertrophic obstructive cardiomyopathy) HTN (hypertension) Hypertension Injury of head and neck Neurogenic bladder Non-smoker Osteoarthritis Post-menopausal Pulmonary nodule Rheumatoid arthritis Type 2 diabetes mellitus Home Medications ?Medication ?Instructions ?Recorded ?Last Taken ?Type acetaminophen 500 mg capsule 500 mg PO Q6H PRN Pain 03/17/22 09/02/23 History atorvastatin 80 mg tablet 80 mg PO DAILY 03/17/22 09/02/23 21:00 History citalopram 20 mg tablet 20 mg PO DAILY 03/17/22 09/03/23 09:00 History diltiazem HCl 120 mg 120 mg PO BID 03/17/22 09/03/23 09:00 History capsule,extended release 24 hr ezetimibe 10 mg tablet 10 mg PO DAILY 03/17/22 Unknown History glimepiride 2 mg tablet 2 mg PO DAILY 03/17/22 09/03/23 09:00 History lisinopril 10 mg tablet 10 mg PO DAILY 03/17/22 09/03/23 09:00 History metformin 500 mg tablet 500 mg PO .1 po qam, 2 po qpm 03/17/22 09/03/23 09:00 History [id number] See Rx Instructions PO .COMPLEX 03/31/23 09/03/23 09:00 Rx 40,000-126,000-168,000 unit #720 caps capsule, delay rel (Zenpep) montelukast 10 mg tablet 10 mg PO QHS 04/27/23 09/02/23 21:00 History omeprazole 20 mg capsule,delayed 20 mg PO DAILY 04/27/23 09/03/23 09:00 History release colestipol 1 gram tablet 2 g (2 x 1 gram) PO BID 07/19/23 09/03/23 09:00 Rx cholesterol #120 TABLETS cyclobenzaprine 10 mg tablet 10 mg PO BID PRN PRN muscle spasm 09/03/23 08/31/23 History diphenhydramine HCl 25 mg capsule 50 mg PO Q6H PRN allergy 09/03/23 09/03/23 09:00 History (Benadryl) metoprolol tartrate 50 mg tablet 50 mg PO BID 09/03/23 09/03/23 09:00 History Allergy/AdvReac Type Severity Reaction Status Date / Time codeine Allergy Intermediate Shortness Verified 04/27/23 07:56 of breath hydromorphone (From Dilaudid) Allergy Intermediate Other Verified 04/27/23 07:56 tramadol Allergy Intermediate Shortness Verified 04/27/23 07:56 of breath Family History Mother Diabetes Liver cancer Lymphoma Brother COPD (chronic obstructive pulmonary disease) Liver cancer Surgical History H/O total hysterectomy History of appendectomy History of cardiac catheterization Hx of breast reduction, elective Hx of heart surgery Hx of surgical procedure Status post insertion of drug-eluting stent into left anterior descending (LAD) artery for coronary artery disease Social History Smoking Status: Never smoker alcohol intake: current alcohol intake frequency: holidays/special occasions only ROS Review of Systems ROS Unobtainable: Denies due to encephalopathy, due to endotracheal tube, due to mental condition, due to mental status or other Constitutional Constitutional: Denies anorexia, change in weight, chills, fatigue, fever(s), malaise, night sweats, weakness or other Eyes Eyes: Denies blurry vision, change in eye color, change in vision, discharge from eye(s), double vision, erythema, eye pain, loss of vision or other ENT HEENT: Denies abnormal hearing, dysphagia, ear pain, epistaxis, headache(s), hearing loss, nasal congestion, nasal discharge, post nasal drip, sinus pressure, sore throat or other Cardiovascular Cardiovascular: Reports chest pain; Denies claudication, dyspnea on exertion, edema, lightheadedness, orthopnea, palpitations, paroxysmal nocturnal dyspnea, rapid heart rate, syncope or other Respiratory/Chest Respiratory/Chest: Denies cough, dyspnea, excessive phlegm production, hemoptysis, productive cough, shortness of breath at rest, shortness of breath with exertion, wheezing or other Gastrointestinal Gastrointestinal: Denies abdominal pain, coffee ground emesis, constipation, diarrhea, dyspepsia, hematemesis, hematochezia, loose stools, melena, nausea, vomiting or other Genitourinary Genitourinary: Denies burning urination, difficulty urinating, dysuria, hematuria, nocturia, urinary frequency, urinary hesitancy, urinary incontinence, urinary urgency or other Musculoskeletal Musculoskeletal: Denies arthralgias, back pain, joint pain, joint stiffness, joint swelling, myalgias, neck pain or other Neurologic Neurologic: Denies abnormal gait, abnormal speech, confusion, disequilibrium, dizziness, focal weakness, headache(s), numbness, paresthesias, seizure-like activity, seizures, syncope, tingling, tremor(s) or other Psychiatric Psychiatric: Denies anxiety, depression, homicidal ideation, suicidal ideation or other Endocrine Endocrinology: Denies change in body appearance, cold intolerance, excessive sweating, heat intolerance, polydipsia, polyuria or other Hematologic/Lymphatic Hematologic/Lymphatic: Denies anemia, easy bleeding, easy bruising, lymphadenopathy or other Allergic/Immunologic Allergic/Immunologic: Denies rhinitis, hives, eczemia, asthma or other Vital Signs Vital Signs Vital Signs: 09/03/23 16:24 09/03/23 16:43 Respiratory Effort Normal Non-Labored Respiratory Depth Normal Respiratory Pattern Normal Pulse Ox 97 Oxygen Delivery Method Room Air Room Air Weight Weight: 158 lb 8.198 oz Body Mass Index (BMI) 25.5 Physical Exam Const alert, oriented x3 and no apparent distress HEENT normocephalic and head/scalp atraumatic Resp normal respiratory effort and no retractions Cardio regular rate and regular rhythm Cardio Narrative: Ejection systolic murmur present GI normal to inspection, nondistended, normoactive bowel sounds Extremity normal to inspection Neuro oriented x3, CN's II-XII intact bilaterally and moves all extremities Sensorium / Orientation: awake and alert Psych affect normal Results Medical Records Data Attestation: I reviewed the patient's medical records Lab / Micro Data Attestation: I reviewed the patient's lab results. Assessment & Plan Assessment/Plan (1) Chest pain: PLAN: Plan 72-year-old female with a history of HOCM, coronary artery disease s/p stenting, ulcerative colitis was transferred to us from OSH for concerns regarding chest pain and elevated troponin levels which is downtrending. She is admitted for further cardiology evaluation and observation. #Chest pain: NSTEMI versus unstable angina -In the setting of HOCM could be related to worsening obstructive symptoms -Will get troponin levels -Echocardiogram -Briefly discussed with freight coordinator Dr. Rivas regarding the case, no need for anticoagulation at this time given her past medical history -Formal cardiology consult tomorrow after the echocardiogram next-continue tab metoprolol as before -Continue tab diltiazem as before #Type 2 diabetes mellitus: -HbA1c levels -Insulin per sliding scale -Hold outpatient oral hypoglycemic agents #Ulcerative colitis: Clinical remission, no symptoms at this time continue to monitor -Follow-up with Dr Godoy as an outpatient #GERD: Continue pantoprazole #Exocrine pancreatic insufficiency: Continue outpatient Creon supplementation #Dyslipidemia: Continue ezetimibe and colestipol #Depression: Continue citalopram #DVT prophylaxis: Encourage mobilization, enoxaparin 40 mg subcutaneous
[2023-09-03] MEDS: metFORMIN HCl 500 MG Tablet 1000 MG PO (17:42)
[2023-09-03] MEDS: Creon 24,000 unit DR Capsule 3 CAP PO (17:43)
[2023-09-03] MEDS: Creon 12,000 unit DR CapSULE 3 CAP PO (17:43)
[2023-09-03] MEDS: 0.9% Saline Lock 10 ML Syringe IV (17:45)
--- NOTE | 2023-09-03 17:45 | CON.PCM.CA_ITS ---
Assessment & Plan Assessment/Plan (1) Chest pain: PLAN: She does present with chest discomfort which does not appear to be coronary in origin. There was mild cardiac enzyme elevation which is declining likely secondary to her hypertrophic cardiomyopathy. I would like us to obtain an echocardiogram and if this does not demonstrate any wall motion abnormality other than the thickened ventricular septum I would recommend discharge for outpatient follow-up with her primary sand temperer. (2) Hypertension: PLAN: Her blood pressure appears to be under good control we will continue the beta-ion and the calcium channel ion at this particular time. (3) HOCM (hypertrophic obstructive cardiomyopathy): PLAN: She does have a history of hypertrophic cardiomyopathy. It does not appear that the gradient is noted to be significant. She may have mild aortic stenosis as well. I would recommend that we perform an echocardiogram in the a.m. to assess the above. If not significant major changes are noted she will be followed up as an outpatient. She tells me that she has not been offered mavacamten as an adjunct medication to what she has been taking. Will defer the above for her to be followed up at the [facility] with her primary physician. Thank you for allowing me to participate in the care of your patient. Please don't hesitate to call if any issues arise. HPI Consult Data Date of Consult: 09/03/23 HPI Narrative HPI Narrative: DEANDRE MONTIEL, is a 72 F who presents as a direct admit through [facility] after presenting there with chest heaviness. She does have a history of coronary artery disease status post remote stenting in 2011, septal myectomy and recent cardiac catheterization in 2021 in [place]. No significant obstructive disease was noted. She tells me that she has been following up at the [facility] and underwent a stress test in March of this year where she exercised to approximately 5 metabolic equivalents with no evidence of ischemia. This was on a stress echo. She occasionally gets chest heaviness. This time she was driving around with a friend and had a similar sensation got mildly dizzy and so they presented to the emergency room at [facility]. An EKG was done which demonstrated left bundle branch block cardiac enzymes were noted to be mildly abnormal and so she requested to be transferred to [facility]. She follows with Dr. Elise at [facility] and [facility] and would prefer to go there if no definitive therapy is going to be undertaken here. She is currently pain-free. She denies any neck arm or jaw discomfort suggest angina at this time. [facility] Medical History (Updated 09/03/23 @ 17:[address] Babatunde Rivas MD) Post-menopausal Depression Diabetes High cholesterol Back pain Injury of head and neck Gastric reflux Non-smoker Chronic cough History of echocardiogram History of stress test Hypertension History of irregular heartbeat Cardiology follow-up encounter Pulmonary nodule Diarrhea Type 2 diabetes mellitus Rheumatoid arthritis Neurogenic bladder Osteoarthritis HTN (hypertension) HOCM (hypertrophic obstructive cardiomyopathy) History of subdural hematoma History of PA (myocardial infarction) Heart murmur CAD (coronary artery disease) Atelectasis Arthritis Anxiety and depression Home Medications ?Medication ?Instructions ?Recorded ?Last Taken ?Type acetaminophen 500 mg capsule 500 mg PO Q6H PRN Pain 03/17/22 09/02/23 History atorvastatin 80 mg tablet 80 mg PO DAILY 03/17/22 09/02/23 21:00 History citalopram 20 mg tablet 20 mg PO DAILY 03/17/22 09/03/23 09:00 History diltiazem HCl 120 mg 120 mg PO BID 03/17/22 09/03/23 09:00 History capsule,extended release 24 hr ezetimibe 10 mg tablet 10 mg PO DAILY 03/17/22 Unknown History glimepiride 2 mg tablet 2 mg PO DAILY 03/17/22 09/03/23 09:00 History lisinopril 10 mg tablet 10 mg PO DAILY 03/17/22 09/03/23 09:00 History metformin 500 mg tablet 500 mg PO .1 po qam, 2 po qpm 03/17/22 09/03/23 09:00 History [id number] See Rx Instructions PO .COMPLEX 03/31/23 09/03/23 09:00 Rx 40,000-126,000-168,000 unit #720 caps capsule, delay rel (Zenpep) montelukast 10 mg tablet 10 mg PO QHS 04/27/23 09/02/23 21:00 History omeprazole 20 mg capsule,delayed 20 mg PO DAILY 04/27/23 09/03/23 09:00 History release colestipol 1 gram tablet 2 g (2 x 1 gram) PO BID 07/19/23 09/03/23 09:00 Rx cholesterol #120 TABLETS cyclobenzaprine 10 mg tablet 10 mg PO BID PRN PRN muscle spasm 09/03/23 08/31/23 History diphenhydramine HCl 25 mg capsule 50 mg PO Q6H PRN allergy 09/03/23 09/03/23 09:00 History (Benadryl) metoprolol tartrate 50 mg tablet 50 mg PO BID 09/03/23 09/03/23 09:00 History Allergy/AdvReac Type Severity Reaction Status Date / Time codeine Allergy Intermediate Shortness Verified 04/27/23 07:56 of breath hydromorphone (From Dilaudid) Allergy Intermediate Other Verified 04/27/23 07:56 tramadol Allergy Intermediate Shortness Verified 04/27/23 07:56 of breath Family History Mother Diabetes Liver cancer Lymphoma Brother COPD (chronic obstructive pulmonary disease) Liver cancer Surgical History History of cardiac catheterization Hx of heart surgery Hx of surgical procedure Hx of breast reduction, elective H/O total hysterectomy History of appendectomy Status post insertion of drug-eluting stent into left anterior descending (LAD) artery for coronary artery disease Social History Smoking Status: Never smoker alcohol intake: current alcohol intake frequency: holidays/special occasions only ROS Constitutional Constitutional: Denies fever(s) or weight loss Eyes Eyes: Reports systems reviewed and no addt'l complaints, except as documented ENT HEENT: Reports systems reviewed and no addt'l complaints, except as documented Cardiovascular Cardiovascular: Reports dyspnea on exertion; Denies chest pain at rest, chest pain with activity, dyspnea at rest, edema, palpitations or paroxysmal nocturnal dyspnea Respiratory/Chest Respiratory/Chest: Reports dyspnea on exertion; Denies productive cough, shortness of breath at rest or shortness of breath with exertion Gastrointestinal Gastrointestinal: Denies change in bowel habits, nausea, vomiting or weight changes Genitourinary Genitourinary: Denies difficulty urinating Musculoskeletal Musculoskeletal: Denies joint stiffness or muscle weakness Integumentary Integumentary: Denies lesions Neurologic Neurologic: Denies dizziness or syncope Psychiatric Psychiatric: Denies anxiety Endocrine Endocrinology: Denies excessive sweating or fatigue Hematologic/Lymphatic Hematologic/Lymphatic: Denies anemia Allergic/Immunologic Allergic/Immunologic: Denies seasonal rhinorrhea Physical Exam Const alert, oriented x3 and no apparent distress General Appearance: cooperative HEENT hearing grossly normal bilaterally Head and Scalp: atraumatic Eyes EOMs intact bilaterally Neck General: normal visual inspection Chest inspection of chest normal and palpation of chest normal Resp normal respiratory effort Auscultation: clear to auscultation bilaterally Cardio regular rate, regular rhythm, S1 normal heart sound and S2 normal heart sound Jugular Venous Distention: JVD Heart Sounds: murmur systolic II/ soft early left sternal border other (Mildly worsening with Valsalva.) GI normal to inspection, nondistended, normoactive bowel sounds Extremity normal capillary refill and no pedal edema Peripheral Pulses: Yes pulses 2+ throughout and femoral pulses present Skin no rashes or lesions noted Neuro oriented x3 and CN's II-XII intact bilaterally Psych Appearance: grossly normal and appropriate Risk Stratification Risk Stratification Applicable: Yes Age >/= 65: Yes >/= 3 CAD Risk Factors (HTN, HLD, DM, family hx of CAD, or current smoker): Yes Aspirin Use in the Past 7 Days: Yes Severe Angina (>/= episodes in 24 hours): No EKG ST Changes >/= 0.5mm: No Positive Cardiac Marker: Yes TURNER Risk Stratification Score: 4 TURNER % Risk: 20% Risk Objective Data Vital Signs: Vital Signs Pulse Ox O2 Del Method 97 Room Air 09/03/23 16:43 09/03/23 16:43 Oxygen Delivery Method Room Air Weight: 158 lb 8.198 oz Body Mass Index (BMI) 25.5 Cardiology Labs/Tests Rhythm: EKG: Normal sinus rhythm with a left bundle branch block ECHO: Stress Test: Cardiac Cath: PCI: CT Surgery: Holter monitor: EPS: PPM: CXR: Chest CT Scan:
[2023-09-03 18:25] LABS: Thyroid Stim Hormone (TSH) 0.92 uIU/mL (0.358-3.74); Troponin-I HS 84 pg/mL (3.0-54.0)
[2023-09-03 21:19] VITALS: BP 143/89; PULSE 63; RESP 16; TEMP 36.6; O2SAT 97
[2023-09-03 21:21] VITALS: PULSE 63
[2023-09-03] MEDS: Metoprolol Tartrate 50 MG Tablet PO (21:21)
[2023-09-03] MEDS: Montelukast 10 MG Tablet PO (21:21)
[2023-09-03] MEDS: dilTIAZem CD 120 MG Capsule PO (21:21)
[2023-09-03] MEDS: Atorvastatin Calcium 80 MG Tablet PO (21:22)
[2023-09-03] MEDS: Colestipol 1 GM TABLET 2 GM PO (21:22)
[2023-09-03] MEDS: Insulin Lispro 100 UNIT/ML INSULN.PEN SC (21:28)
[2023-09-03 21:49] LABS: Bedside Glucose 157 mg/dL (74-106)
[2023-09-04 03:01] VITALS: BP 112/71; PULSE 62; RESP 16; TEMP 36.7; O2SAT 97
[2023-09-04 06:35] LABS: Absolute Lymphocyte Count 2.58 X10^3/uL (0.83-4.51); Absolute Neutrophil Count 2.8 X10^3/uL (2.0-7.7); Basophil# 0.09 X10^3/uL; Basophil% 1.3 % (0-1); Eosinophil# 0.73 X10^3/uL; Eosinophils% 10.9 % (0-5); Hematocrit 38.5 % (37-47); Lymphocyte # 2.58 X10^3/ul (0.83-4.51); Lymphocyte % 38.4 % (19-41); Mean Corp Hgb Conc 31.2 g/dL (32-36); Mean Platelet Vol. 9.9 fl (6.2-12.0); Monocyte# 0.46 X10^3/uL; Monocyte% 6.8 % (0-10); NRBC Flagged by Analyzer 0 % (0-5); Neutrophil # 2.83 X10^3/uL (2.7-7.7); Neutrophil % 42.2 % (47-70); Platelet Count 310 K/mm3 (150-450); RBC Distribution Width CV 12.8 % (11.6-14.6); RBC Distribution Width SD 42.2 fl (35.1-43.9); Red Blood Count 4.28 M/mm3 (4.2-5.4); White Blood Count 6.7 K/mm3 (4.4-11.0)
[2023-09-04 06:38] LABS: International Normalized Ratio 1.1; Prothrombin Time (Protime)PT. 13.9 SECONDS (11.7-14.9)
[2023-09-04 06:51] LABS: Bedside Glucose 111 mg/dL (74-106)
[2023-09-04 06:51] LABS: Bedside Glucose 96 mg/dL (74-106)
[2023-09-04 07:21] LABS: AST(SGOT) 20 U/L (15-37); Alanine Aminotransfer ALT/SGPT 21 U/L (13-56); Albumin, Serum 3.7 g/dL (3.2-5.0); Alkaline Phosphatase 79 U/L (45-117); Anion Gap 8 (5-15); BUN 15 mg/dL (7-18); BUN/Creat Ratio 18.8 RATIO (10-20); Bilirubin, Direct 0.16 mg/dL (0.00-0.30); Calcium,Total 9.1 mg/dL (8.5-10.1); Chloride 104 mmol/L (98-107); EST Glomerular Filtration Rate 75 mL/min (>60); Est Glom Filt Rate - Afr Amer 91 mL/min (>60); Estimated Creatinine Clearance 63.61 ml/min; Globulin 3.6 g/dL (2.2-4.2); Glucose 126 mg/dL (74-106); Magnesium 2.3 mg/dL (1.6-2.6); Phosphorus 3.6 mg/dL (2.5-4.9); Potassium 4.1 mmol/L (3.5-5.1); Protein, Total 7.3 g/dL (6.4-8.2); Sodium Level 138 mmol/L (136-145); Thyroid Stim Hormone (TSH) 1.76 uIU/mL (0.358-3.74)
[2023-09-04 07:30] LABS: BNP,B-Type NATRIURETIC PEPTIDE 93.9 pg/mL (0-100)
[2023-09-04 07:50] VITALS: O2SAT 95
[2023-09-04 09:00] VITALS: BP 137/58; PULSE 68; RESP 18; TEMP 36.3; O2SAT 95
[2023-09-04] MEDS: Creon 12,000 unit DR CapSULE 3 CAP PO ×2 (09:13→12:47)
[2023-09-04] MEDS: Creon 24,000 unit DR Capsule 3 CAP PO ×2 (09:14→12:47)
[2023-09-04 09:15] VITALS: BP 137/58; PULSE 68
[2023-09-04] MEDS: Colestipol 1 GM TABLET 2 GM PO (09:15)
[2023-09-04] MEDS: Ezetimibe 10 MG Tablet PO (09:15)
[2023-09-04] MEDS: Metoprolol Tartrate 50 MG Tablet PO (09:15)
[2023-09-04] MEDS: dilTIAZem CD 120 MG Capsule PO (09:15)
[2023-09-04] MEDS: Lisinopril 10 MG Tablet PO (09:16)
[2023-09-04] MEDS: Citalopram 20 MG Tablet PO (09:16)
[2023-09-04] MEDS: Pantoprazole Sodium 20 MG Tablet PO (09:17)
[2023-09-04] MEDS: Enoxaparin 40 MG/0.4 ML Syringe SC (10:22)
[2023-09-04 12:01] LABS: Bedside Glucose 176 mg/dL (74-106)
[2023-09-04] MEDS: Insulin Lispro 100 UNIT/ML INSULN.PEN SC (12:48)
--- NOTE | 2023-09-04 13:53 | PCM.DC ---
Discharge Instructions Diet Discharge Diet: Low fat / Low cholesterol and Carb Control Diet Activity Discharge Activity: Return to Normal Activity Dressing / Incision Call your doctor if you observe: Fever of 101 or Higher, Shortness of breath, Dizziness, Fainting spells, Swelling in the ankles, Chest pain and Increased palpitations (irregular heartbeat) Follow Up Care Test Results: Test results from this visit will be discussed in further detail at your follow-up appointment, if applicable. Discharge Plan Admission Admit Date/Time: 09/03/23 16:23 Attending Provider: Mario Simon Primary Care Provider: Juan Shearer Consulting Providers: Yolanda Donato; Andrés Rodgers; Oksana Driscoll; Truman Lozano; Babatunde Rivas; Binu Zhu; Christoph Buchanan; Montrell Sullivan; Fidel Lechuga; Dawit Hogue; Clyde Robin ION EXCHANGE OPERATOR; Yolanda Carrero ION EXCHANGE OPERATOR; Yovana Falcon PA; Jacqueline Davis Discharge Orders/Prescriptions Prescriptions: Continued diltiazem HCl 120 mg capsule,extended release 24hr 120 mg PO BID acetaminophen 500 mg capsule 500 mg PO Q6H PRN (Reason: Pain) lisinopril 10 mg tablet 10 mg PO DAILY ezetimibe 10 mg tablet 10 mg PO DAILY metformin 500 mg tablet 500 mg PO .1 po qam, 2 po qpm citalopram 20 mg tablet 20 mg PO DAILY glimepiride 2 mg tablet 2 mg PO DAILY atorvastatin 80 mg tablet 80 mg PO DAILY omeprazole 20 mg capsule,delayed release(DR/EC) 20 mg PO DAILY Patient Comments: take 1 capsule by mouth every morning 30 MINUTES before breakfast montelukast 10 mg tablet 10 mg PO QHS Patient Comments: take 1 tablet by mouth at bedtime metoprolol tartrate 50 mg tablet 50 mg PO BID cyclobenzaprine 10 mg tablet 10 mg PO BID PRN PRN (Reason: muscle spasm) diphenhydramine HCl [Benadryl] 25 mg capsule 50 mg PO Q6H PRN (Reason: allergy) Zenpep 40,000-126,000- 168,000 unit capsule,delayed release(DR/EC) See Rx Instructions PO .COMPLEX Qty: 720 2RF Rx Instructions: take 1-2 with snacks and 2-3 with meals. EPI K86.81. Please utilize copay card. colestipol 1 gram tablet 2 g PO BID Qty: 120 1RF Referrals / Follow Up: Juan Shearer MD [Primary Care Provider] - Within 1 Week Disposition Disposition (needs filled in before D/C Order can be placed): Home, Self Care
--- NOTE | 2023-09-04 13:55 | PCM.DC.SUM ---
Providers Date of Admission: 09/03/23 Primary Care Physician: Dr. Juan Shearer MD Consultations 09/03/23 16:24 Consult: Cardiology Routine Consulting Provider: Reynaldo Montague Reason for Consult: Chest Pain EMERGENT Consult: No MD Notified: Yes Date Notified: 09/03/23 Time Notified: 16:24 Method of Notification: Text Reason For Visit: NSTEMI Diagnosis Discharge Diagnosis (1) Chest pain: Status: Acute Code(s): R07.9 - Chest pain, unspecified (2) Hypertension: Status: Chronic Code(s): I10 - Essential (primary) hypertension (3) HOCM (hypertrophic obstructive cardiomyopathy): Status: Acute Code(s): I42.1 - Obstructive hypertrophic cardiomyopathy Medications at Discharge Home Medications acetaminophen 500 mg capsule 500 mg PO Q6H PRN Pain 03/17/22 atorvastatin 80 mg tablet 80 mg PO DAILY 03/17/22 citalopram 20 mg tablet 20 mg PO DAILY 03/17/22 diltiazem HCl 120 mg capsule,extended release 24 hr 120 mg PO BID 03/17/22 ezetimibe 10 mg tablet 10 mg PO DAILY 03/17/22 glimepiride 2 mg tablet 2 mg PO DAILY 03/17/22 lisinopril 10 mg tablet 10 mg PO DAILY 03/17/22 metformin 500 mg tablet 500 mg PO .1 po qam, 2 po qpm 03/17/22 [id number] 40,000-126,000-168,000 unit capsule, delay rel (Zenpep) See Rx Instructions PO .COMPLEX #720 caps 03/31/23 montelukast 10 mg tablet 10 mg PO QHS 04/27/23 omeprazole 20 mg capsule,delayed release 20 mg PO DAILY 04/27/23 colestipol 1 gram tablet 2 g (2 x 1 gram) PO BID cholesterol #120 TABLETS 07/19/23 cyclobenzaprine 10 mg tablet 10 mg PO BID PRN PRN muscle spasm 09/03/23 diphenhydramine HCl 25 mg capsule (Benadryl) 50 mg PO Q6H PRN allergy 09/03/23 metoprolol tartrate 50 mg tablet 50 mg PO BID 09/03/23 Hospital Course Operations None Procedures 2-D Echocardiogram Summary of Care Provided Minutes Spent on Discharge: 33 Hospital Course: Per HPI: DEANDRE MONTIEL, is a 72 F with past medical history of coronary artery disease, hypertrophic obstructive cardiomyopathy, ulcerative colitis in remission, uterine prolapse, GERD, type 2 diabetes, who presents to [facility] as a transfer from outside emergency department for evaluation of chest pain. She was apparently doing well till this morning around 11 AM noticed extreme pressure around her chest and a sensation of passing out when she called her friend and went to the ED for further evaluation. She has had similar concerns in the past and was being evaluated at the [facility] for her symptoms and recently underwent a stress test around 2 weeks back which is not positive for any ischemia at the time. For her hypertrophic cardiomyopathy she takes metoprolol 50 mg twice daily and has been taking that since her recent discharge. She is also on diltiazem 120 mg extended release. During her evaluation in the ED her initial high-sensitivity troponin was 110 was reduced to 90 on subsequent evaluation. At the time of discussion with the ED physician, there were concerns that given her history of prior coronary artery disease she needs further inpatient evaluation and workup. For this reason she was being transferred to [facility]. Hospital Course: 1. Chest pain with a troponin elevation secondary to hypertrophic obstructive cardiomyopathy?72-year-old female presented to the hospital with chest pain and elevated troponin. EKG was unremarkable and echo with an EF of 70% and mild to moderate aortic stenosis. Chest pain is resolved and she did not have a non-STEMI. Based on her consistent echo cardiology felt that she would be okay for discharge today. 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 I discussed with her the plan for discharge today she expressed understanding the risk and benefits of going home and would like to go home today. There were no changes made to her medications. 2. Essential hypertension, hyperlipidemia, type 2 diabetes, pancreatic insufficiency, GERD are all chronic medical conditions which complicate her care. Her home medications were appropriate Physical Exam Narrative General: Alert, Oriented x3, Cooperative, No apparent distress HEENT: Atraumatic, PERRLA, EOMI, Normocephalic Oral: Moist Mucosa Neck: Supple, No JVD Lungs: Diminished, Normal air movement, No rhonchi, No wheeze, No rales Cardiovascular: Regular rate, Regular Rhythm, Normal S1, Normal S2, MARCY Abdomen: Soft, Non Tender, Non-Distended, No Hepato-splenomegaly Extremities: No edema, Capillary Refill Less than 3 Seconds Skin: No rashes, No breakdown Musculoskeletal: No Tenderness to Palpation of Joints or Extremities Neurological: No focal neurological deficits, Motor Exam 5/5 strength throughout, Sensory exam intact to light touch and pain Psych/Mental Status: Normal Affect, Appropriate Weight / BMI Weight Weight: 158 lb 8.198 oz Body Mass Index (BMI) 25.5 ABG / Lab / Microbiology Data 09/04/23 05:41 09/04/23 05:41 Laboratory: Laboratory Results - last 24 hr 09/03/23 17:52: Troponin I High Sens 84 H, TSH 0.92 09/03/23 21:18: POC Glucose 157 H 09/04/23 02:59: POC Glucose 96 09/04/23 05:41: WBC 6.7, RBC 4.28, Hgb 12.0, Hct 38.5, MCV 90.0, MCH 28.0, MCHC 31.2 L, RDW Std Deviation 42.2, RDW Coeff of Pantera 12.8, Plt Count 310, MPV 9.9, Immature Gran % (Auto) 0.400, Neut % (Auto) 42.2 L, Lymph % (Auto) 38.4, Irion % (Auto) 6.8, Eos % (Auto) 10.9 H, Baso % (Auto) 1.3 H, Absolute Neuts (auto) 2.8, Absolute Lymphs (auto) 2.58, Nucleated RBC % 0, PT 13.9, INR 1.1, Sodium 138, Potassium 4.1, Chloride 104, Carbon Dioxide 26.0, Anion Gap 8, BUN 15, Creatinine 0.80, Estim Creat Clear Calc 63.61, Est GFR (MDRD) Af Amer 91, Est GFR (MDRD) Non-Af 75, BUN/Creatinine Ratio 18.8, Glucose 126 H, Calcium 9.1, Phosphorus 3.6, Magnesium 2.3, Total Bilirubin 0.60, Direct Bilirubin 0.16, AST 20, ALT 21, Alkaline Phosphatase 79, B-Natriuretic Peptide 93.9, Total Protein 7.3, Albumin 3.7, Globulin 3.6, Albumin/Globulin Ratio 1.0, TSH 1.76 09/04/23 06:27: POC Glucose 111 H 09/04/23 11:28: POC Glucose 176 H Radiography Diagnostic Testing: Radiology Impression Echocardiogram 09/03/23 16:22 Interpretation Summary The estimated ejection fraction is 70 %. Unable to assess diastolic dysfunction. Trivial mitral valve insufficiency. Mild to moderate aortic stenosis. Trivial aortic valve insufficiency. Ordering Physician: Jacqueline Davis Referring Physician: Juan Shearer Performed By: Cristina Robin, AYANNA, RVT D/C Instructions Discharge Diet: Low fat / Low cholesterol and Carb Control Diet Call your doctor if you observe: Fever of 101 or Higher, Shortness of breath, Dizziness, Fainting spells, Swelling in the ankles, Chest pain and Increased palpitations (irregular heartbeat) Meaningful Use Info Meaningful Use Meaningful Use Diagnoses (Choose all that apply): None applicable Ischemic Stroke Statin Dosing Therapy Reference: STATIN DOSE THERAPY REFERENCE: * Patients > 75 years receive moderate or high dose statin therapy. * Patients 75 years or YOUNGER should receive HIGH intensity statin dose unless contraindicated. You will be required to document reason for non-treatment if statin daily dose does not meet guidelines. HIGH DOSE STATIN THERAPY DAILY Atorvastatin > than or = to 40 mg Rosuvastatin > than or = to 20 mg Amlodipine + Atorvastatin > than or = to 2.5/40 mg Ezetimibe + Simvastatin 10/80 mg Simvastatin 80mg Discharge Plan Admission Admit Date/Time: 09/03/23 16:23 Attending Provider: Mario Simon Primary Care Provider: Juan Shearer Consulting Providers: Yolanda Donato; Andrés Rodgers; Oksana Driscoll; Truman Lozano; Babatunde Rivas; Binu Zhu; Christoph Buchanan; Montrell Sullivan; Fidel Lechuga; Dawit Hogue; Clyde Robin JOB TRAINING SUPERVISOR; Yolanda Carrero NP; Yovana Falcon; Jacqueline Davis Discharge Orders/Prescriptions Prescriptions: Continued diltiazem HCl 120 mg capsule,extended release 24hr 120 mg PO BID acetaminophen 500 mg capsule 500 mg PO Q6H PRN (Reason: Pain) lisinopril 10 mg tablet 10 mg PO DAILY ezetimibe 10 mg tablet 10 mg PO DAILY metformin 500 mg tablet 500 mg PO .1 po qam, 2 po qpm citalopram 20 mg tablet 20 mg PO DAILY glimepiride 2 mg tablet 2 mg PO DAILY atorvastatin 80 mg tablet 80 mg PO DAILY omeprazole 20 mg capsule,delayed release(DR/EC) 20 mg PO DAILY Patient Comments: take 1 capsule by mouth every morning 30 MINUTES before breakfast montelukast 10 mg tablet 10 mg PO QHS Patient Comments: take 1 tablet by mouth at bedtime metoprolol tartrate 50 mg tablet 50 mg PO BID cyclobenzaprine 10 mg tablet 10 mg PO BID PRN PRN (Reason: muscle spasm) diphenhydramine HCl [Benadryl] 25 mg capsule 50 mg PO Q6H PRN (Reason: allergy) Zenpep 40,000-126,000- 168,000 unit capsule,delayed release(DR/EC) See Rx Instructions PO .COMPLEX Qty: 720 2RF Rx Instructions: take 1-2 with snacks and 2-3 with meals. EPI K86.81. Please utilize copay card. colestipol 1 gram tablet 2 g PO BID Qty: 120 1RF Referrals / Follow Up: Juan Shearer MD [Primary Care Provider] - Within 1 Week Disposition Disposition (needs filled in before D/C Order can be placed): Home, Self Care Charges/Coding Visit Charges Inpatient E&M: 55627 Disch Hosp >30min
[2023-09-04 14:05] VITALS: BP 137/58; PULSE 68; RESP 18; TEMP 36.4; O2SAT 95
== END 2023-09-04 13:55 | disposition home or self-care (01) ==
PROVIDERS: Admitting Provider Internal Medicine; PCP Family Medicine; Visit Provider Family Medicine
DX: I42.1 Obstructive hypertrophic cardiomyopathy (principal); E11.9 Type 2 diabetes mellitus without complications; R07.89 Other chest pain; E78.00 Pure hypercholesterolemia, unspecified; K21.9 Gastro-esophageal reflux disease without esophagitis; I25.10 Atherosclerotic heart disease of native coronary artery without angina pectoris; I10 Essential (primary) hypertension; K86.89 Other specified diseases of pancreas; Z79.899 Other long term (current) drug therapy; F32.A Depression, unspecified; Z79.84 Long term (current) use of oral hypoglycemic drugs
CPT/HCPCS: 36415; 80053; 82248; 82962; 83735; 83880; 84100; 84443; 84484; 85025; 85610; 93005; 93306; 96372; 99221; A4216; G0378; G0379

== ENCOUNTER 2024-11-07 10:42 | Day surgery (SDC) | payer MEDICARE, SELFPAY ==
--- NOTE | 2024-11-06 16:12 | PAT.ANESEVAL ---
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 When Was Last Pacemaker Check QUESTION #4 FULL TEXT: You/Your Family Experience fever (hyperthermia) with Anesthesia Last Oral Intake Last Oral intake: Last Oral Intake NPO since Meds taken in AM with sips of water? 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 Female Yes 11/06/24 12:09 HX of Motion Sickness Yes 11/06/24 12:09 HX of N/V After Surgery No 11/06/24 12:09 Non-Smoker Yes 11/06/24 12:09 Duration of Surgery greater No 11/06/24 12:09 than 60 minutes Number of Risk Factors 3 11/06/24 12:09 PONV Score Moderate Risk 11/06/24 12:09 Height & Weight Height & Weight: Anesthesia: Height & Weight Height 5 ft 6 in 07/03/24 12:13 Respiratory Assessment Respiratory Assessment - submarine cable equipment technician: Respiratory Tract Infection Hx - 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 Has anyone observed you stop No 11/06/24 12:09 breathing during sleep? STOP Results Negative 11/06/24 12:09 QUESTION #5 FULL TEXT : Do you snore loudly (louder than talking or can be heard through closed doors)? 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 Specify any problems Hx of Preganancy in last 3 No 11/06/24 12:09 Months Nurse Filling Out Transfusion [id number] 11/06/24 12:09 & Questions: Date: 11/06/24 11/06/24 12:09 Time: 12:12 11/06/24 12:09 Patient unable to answer at this time (ie. confused, unrespo /Reproduction History /Reproductive History - submarine cable equipment technician: /Reproductive Hx- submarine cable equipment technician Hx Now No 11/06/24 12:09 Gestational Age (in weeks): EDC: Hx Hx Para Hx Section SAB No 11/06/24 12:09 [facility] [place] Medical History (Updated 11/06/24 @ 12:25 by Jaimie Cope) Anxiety Low iron Anemia Restless legs History of ulcerative colitis Shortness of breath on exertion History of CHF (congestive heart failure) Post-menopausal Depression Diabetes High cholesterol Back pain Injury of head and neck Gastric reflux Non-smoker Chronic cough History of echocardiogram History of stress test Hypertension History of irregular heartbeat Cardiology follow-up encounter Pulmonary nodule Diarrhea Type 2 diabetes mellitus Rheumatoid arthritis Neurogenic bladder Osteoarthritis HTN (hypertension) HOCM (hypertrophic obstructive cardiomyopathy) History of subdural hematoma History of NH (myocardial infarction) Heart murmur CAD (coronary artery disease) Atelectasis Arthritis Anxiety and depression Home Medications ?Medication ?Instructions ?Recorded ?Last Taken ?Type acetaminophen 500 mg capsule 500 mg PO Q6H PRN Pain 03/17/22 09/02/23 History atorvastatin 80 mg tablet 80 mg PO DAILY 03/17/22 09/02/23 21:00 History citalopram 20 mg tablet 20 mg PO DAILY 03/17/22 09/03/23 09:00 History diltiazem HCl 120 mg 120 mg PO BID 03/17/22 09/03/23 09:00 History capsule,extended release 24 hr ezetimibe 10 mg tablet 10 mg PO DAILY 03/17/22 Unknown History glimepiride 2 mg tablet 2 mg PO DAILY 03/17/22 09/03/23 09:00 History lisinopril 10 mg tablet 10 mg PO DAILY 03/17/22 09/03/23 09:00 History metformin 500 mg tablet 500 mg PO .1 po qam, 2 po qpm 03/17/22 09/03/23 09:00 History [id number] See Rx Instructions PO .COMPLEX 03/31/23 09/03/23 09:00 Rx 40,000-126,000-168,000 unit #720 caps capsule, delay rel (Zenpep) montelukast 10 mg tablet 10 mg PO QHS 04/27/23 09/02/23 21:00 History omeprazole 20 mg capsule,delayed 20 mg PO DAILY 04/27/23 09/03/23 09:00 History release cyclobenzaprine 10 mg tablet 10 mg PO BID PRN PRN muscle spasm 09/03/23 08/31/23 History diphenhydramine HCl 25 mg capsule 50 mg PO Q6H PRN allergy 09/03/23 09/03/23 09:00 History (Benadryl) metoprolol tartrate 50 mg tablet 50 mg PO BID 09/03/23 09/03/23 09:00 History cholestyramine (with sugar) 4 gram 4 g PO BID #60 ea 06/02/24 Unknown Rx powder for susp in a packet Allergy/AdvReac Type Severity Reaction Status Date / Time codeine Allergy Intermediate Shortness Verified 11/06/24 12:03 of breath hydromorphone (From Dilaudid) Allergy Intermediate Other Verified 11/06/24 12:03 tramadol Allergy Intermediate Shortness Verified 11/06/24 12:03 of breath Family History Mother Diabetes Liver cancer Lymphoma Brother COPD (chronic obstructive pulmonary disease) Liver cancer Surgical History (Updated 11/06/24 @ 12:09 by Jaimie Cope) History of left knee surgery History of esophagogastroduodenoscopy (EGD) History of colonoscopy History of cardiac catheterization Hx of heart surgery Hx of surgical procedure Hx of breast reduction, elective H/O total hysterectomy History of appendectomy Status post insertion of drug-eluting stent into left anterior descending (LAD) artery for coronary artery disease Social History Smoking Status: Never smoker alcohol intake: current alcohol intake frequency: holidays/special occasions only Audit: Pertinent Findings Pertinent Findings EKG Perinent findings: July 31, 2024. Sinus bradycardia. Left bundle branch block. Stress test pertinent findings: April 12, 2023. EF 61%. Patient achieved a METS of 4.7. Stress EKG was nondiagnostic due to left bundle branch block. Patient is asymptomatic during stress test. Echo (EF%) pertinent findings: July 06, 2024. EF of 59%. PA pressures 29 mmHg. Mild aortic valve stenosis due to calcific valve. Status post septal myectomy for hypertrophic obstructive cardiomyopathy, the LVOT is 7 mmHg which increases to 40 mmHg with Valsalva. Consult pertinent findings: 05/08/2024. Dr. Arizmendi?cardiology. 1. Patient with history of hypertrophic obstructive cardiomyopathy, status post septal myectomy in 2011. She started having dizziness when she doubled up on her Cardizem doses. Will check echo to assess the LVOT gradient. (See above). 2. Coronary artery disease of [place] arteries with stable angina. History of LAD stent with no angina. Continue medical therapy. Recommendation Anesthesia Recommendation Anesthesia recommendation: OPTIMIZED for anesthesia (Patient has mild aortic stenosis. Also history of left ventricular outflow tract obstruction. Avoid increased heart rates and decrease blood pressures. Phenylephrine is drug of choice.)
[2024-11-07] VITALS (7 sets, daily range): BP systolic 124–139; BP diastolic 54–64; PULSE 50–58; RESP 12–16; TEMP 36.1–36.2; O2SAT 95–100; BMI 24.3
[2024-11-07] MEDS: Lactated Ringers 1,000 ML 15 ML IV (11:17)
--- NOTE | 2024-11-07 12:08 | PCM.HP.STD ---
HPI - General General Date of Admission: 11/07/24 Date of Service: 11/07/24 Chief Complaint: abdominal pain and rectal prolapse with ulcerative colitis HPI Narrative DEANDRE MONTIEL, is a 74 F who presents ulcerative colitis PMH CAD, anxiety/depression, heart murmur, AK, subdural hematoma, obstructive cardiomyopathy, HTN, neurogenic bladder, osteoarthritis, RA, DMII with polyneuropathy. PCP OV 08.14.21 for issues to include increased diarrhea frequency for 3-4 months. ? Biochemical CMP, CBC, Urine without pertinent abnormality. ? Triglycerides H171, A1c H6.8, VLDL H34 *BGI established 05.29.22. History of ulcerative colitis diagnosed at age 29; she had been having issues since puberty and it is suspected this was the cause at that time. She was diagnosed following miscarriage r/t underlying medical conditions and was found to have UC in this workup. History asacol, hydrocor azulfadine, prednisone used previously but this upset her stomach. She experienced an improvement of rectal bleeding and did not seek further management. During time without treatment she had Q6M colonoscopies with small area of inflammation. During this time, she had minimal symptoms, but did not resolve completely. Current symptoms include loose stools varying up to ten times a day with recent involvement of nocturnal presentation, rectal bleeding is noted (she feels r/t hemorrhoids), abdominal pain noted approximately a month prior, infrequent nausea without emesis. GERD has also been a historical issue with a history of gastric ulcers. ? Last colonoscopy 2014/2015 with one small area of inflammation. History of polyps. ? Biochemical CBC, ESR, CBC, CRP, NAFISA comp, TIFFANIE, GAME, celiac, IBD profile, titers, TB without pertinent abnormality. ? pANCA H1:160 ? Stool calprotectin, C.Diff (cancelled), EP, O/P, giardia WNL.? Lactoferrin +, Elastase L184 ? Start Zenpep 06.16.22 ? CT abd/pel not performed ? MRI Pelvis 07.06.22 evidence of bladder, vaginal and rectal prolapse. ? Refer to colorectal surgery. ? Biochemical ANCA, AMA, ASM, PR3 WNL.? MPO H601 Contact 07.09.22 she is now having somewhat more solid but continue to be frequent since start of Zenpep. Agreeable to colorectal surgery; will discuss with her insurance company and let clinic know where to send referral. ? EGD and colonoscopy 07.23.22 irregular Zline 37cm, Alexander?s +; erythematous duodenopathy. ? Colonoscopy UC Meier score 1, in remission; two 1-2mm TA polyps; Congested TI. No pathologic changes. OV 5.. since colonoscopy she has been having solid BM without incontinence; bloating and cramping has also resolved prior to colonoscopy. OV 8.18.23 intermittent symptoms of loose stools with incontinence because she has no sensation. She has not seen colorectal surgeon because she was having difficulty contacting her insurance company and then forgot. Continues with Zenpep and finds this helpful when she remembers to take it. OV 8.6.24 pt reports alternating diarrhea and constipation 3-4 times a day; reports that she has to manually disimpact stool due to loss of tone and feeling in her rectum. Pt reports HB depending on what she eats and states that omeprazole does not seem to be effective. OV 2.7.25 OV 5.5.25 pt reports at her last visit we had discussed possible referral for surgical repair of pelvic prolapse, pt was not open to this at that time, would now like to revisit this option as her symptoms have worsened. Pt reports she is unable to push stool out and has to digitally remove it. Pt reports that she has a new sore about 1 inch above her rectum. Pt reports increased rectal bleeding. Continues with cholestyramine, zenpep, and omeprazole. [facility] Medical History Anxiety Low iron Anemia Restless legs History of ulcerative colitis Shortness of breath on exertion History of CHF (congestive heart failure) Post-menopausal Depression Diabetes High cholesterol Back pain Injury of head and neck Gastric reflux Non-smoker Chronic cough History of echocardiogram History of stress test Hypertension History of irregular heartbeat Cardiology follow-up encounter Pulmonary nodule Diarrhea Type 2 diabetes mellitus Rheumatoid arthritis Neurogenic bladder Osteoarthritis HTN (hypertension) HOCM (hypertrophic obstructive cardiomyopathy) History of subdural hematoma History of AK (myocardial infarction) Heart murmur CAD (coronary artery disease) Atelectasis Arthritis Anxiety and depression Home Medications ?Medication ?Instructions ?Recorded ?Last Taken ?Type acetaminophen 500 mg capsule 500 mg PO Q6H PRN Pain 03/17/22 09/02/23 History atorvastatin 80 mg tablet 80 mg PO DAILY 03/17/22 09/02/23 21:00 History citalopram 20 mg tablet 20 mg PO DAILY 03/17/22 11/06/24 History diltiazem HCl 120 mg 120 mg PO BID 03/17/22 11/07/24 History capsule,extended release 24 hr ezetimibe 10 mg tablet 10 mg PO DAILY 03/17/22 11/06/24 History glimepiride 2 mg tablet 2 mg PO DAILY 03/17/22 11/06/24 History lisinopril 10 mg tablet 10 mg PO DAILY 03/17/22 11/06/24 History metformin 500 mg tablet 500 mg PO .1 po qam, 2 po qpm 03/17/22 11/06/24 History owbxpm-vvokrpfx-ofaacwe See Rx Instructions PO .COMPLEX 03/31/23 11/04/24 Rx 40,000-126,000-168,000 unit #720 caps capsule, delay rel (Zenpep) montelukast 10 mg tablet 10 mg PO QHS 04/27/23 09/02/23 21:00 History omeprazole 20 mg capsule,delayed 20 mg PO DAILY 04/27/23 11/07/24 History release cyclobenzaprine 10 mg tablet 10 mg PO BID PRN PRN muscle spasm 09/03/23 08/31/23 History diphenhydramine HCl 25 mg capsule 50 mg PO Q6H PRN allergy 09/03/23 09/03/23 09:00 History (Benadryl) metoprolol tartrate 50 mg tablet 50 mg PO BID 09/03/23 11/07/24 History cholestyramine (with sugar) 4 gram 4 g PO BID #60 ea 06/02/24 11/05/24 Rx powder for susp in a packet Allergy/AdvReac Type Severity Reaction Status Date / Time codeine Allergy Intermediate Shortness Verified 11/07/24 11:07 of breath hydromorphone (From Dilaudid) Allergy Intermediate Other Verified 11/07/24 11:07 tramadol Allergy Intermediate Shortness Verified 11/07/24 11:07 of breath Family History Mother Diabetes Liver cancer Lymphoma Brother COPD (chronic obstructive pulmonary disease) Liver cancer Surgical History History of left knee surgery History of esophagogastroduodenoscopy (EGD) History of colonoscopy History of cardiac catheterization Hx of heart surgery Hx of surgical procedure Hx of breast reduction, elective H/O total hysterectomy History of appendectomy Status post insertion of drug-eluting stent into left anterior descending (LAD) artery for coronary artery disease Social History Smoking Status: Never smoker alcohol intake: current alcohol intake frequency: holidays/special occasions only ROS Constitutional Constitutional: Denies fatigue, fever(s), poor appetite, weight gain or weight loss Gastrointestinal Gastrointestinal: Denies belching, bloating, change in bowel habits, change in stool character, chewing difficulty, coffee ground emesis, constipation, cramping, diarrhea, dyspepsia, dysphagia, early satiety, excessive flatus, fecal incontinence, heartburn, hematemesis, hematochezia, hemorrhoids, loose stools, melena, nausea, odynophagia, rectal bleeding, tenesmus, vomiting or weight changes Vital Signs Vital Signs Vital Signs: 11/07/24 11:09 11/07/24 11:09 Temperature 97.0 F L Temperature Source Temporal Pulse Rate 56 L Respiratory Rate 12 Respiratory Pattern Normal Blood Pressure 139/64 H Blood Pressure Mean 89 Blood Pressure Source Monitor Blood Pressure Position Semi-Fowlers Blood Pressure Location Right Arm Pulse Ox 100 Oxygen Delivery Method Room Air Weight Weight: 150 lb 12.739 oz Body Mass Index (BMI) 24.3 Physical Exam Const alert, oriented x3, no apparent distress and healthy appearing General Appearance: cooperative GI normal to inspection, nondistended, normoactive bowel sounds, soft to palpation, non-tender and non-distended Percussion: normal to percussion Rectal Exam: deferred Results Lab / Micro Data Labs: Laboratory Results - last 24 hr 11/07/24 11:05: POC Glucose 115 H Assessment & Plan Assessment/Plan (1) Ulcerative colitis: QUALIFIERS: Ulcerative colitis location: ulcerative pancolitis Digestive disease complication type: without complication Qualified Code(s): K51.00 - Ulcerative (chronic) pancolitis without complications (2) Rectal prolapse: PLAN: Assessment and Plan Assessment and Plan (1) Ulcerative colitis: Status: Chronic Qualifiers: Ulcerative colitis location: ulcerative pancolitis Digestive disease complication type: without complication Qualified Code(s): K51.00 - Ulcerative (chronic) pancolitis without complications Plan: History of ulcerative colitis which sounds like ulcerative proctitis. Her colonoscopy did not show any acute inflammation. There were 2 adenomatous polyps that were removed. Biopies did not show any signs of active colitis. She is having more formed stools without bleeding secondary to the colestipol. However the colestipol is too expensive. The cholestyramine is a little bit more affordable for her. She says that the cholestyramine works well regarding the form of her bowel movements. However she does have rectal prolapse and a very weak pelvic floor. She would like to have anorectal manometry and evaluation for possible surgery. (2) GERD (gastroesophageal reflux disease): Status: Chronic Qualifiers: Esophagitis presence: with esophagitis Esophagitis bleeding: without hemorrhage Qualified Code(s): K21.00 - Gastro-esophageal reflux disease with esophagitis, without bleeding Plan: Continue famotidine as needed. (3) Exocrine pancreatic insufficiency: Status: Chronic Plan: Continue pancreatic enzymes and increase one per meal (4) Rectal prolapse: Status: Chronic Plan: We will send a referral to colorectal surgeon and hopefully she will be a candidate for rectocele and a rectal prolapse repair. We will give her cholestyramine to take at night and hopefully help some of her fecal urgency and incontinence that she is experiencing during the day. (5) Bladder prolapse: Status: Chronic (6) Vaginal prolapse: Status: Chronic (7) Personal history of colonic polyps: Status: Acute Plan:
--- NOTE | 2024-11-07 13:00 | COLBX_PTH ---
PATIENT: DEANDRE MONTIEL LOC: EN U#:[id number] AGE/SX: 74/F ROOM: RE11/07/[address]: Dr. Miguel A Godoy DO : 1950 BED: DIS: 11/07/2024 SPEC #: [id number] RECD: 11/07/24 16:35 STATUS: NEGRO REAmira #: [id number] YENIFER: 11/07/24 13:[address]: Miguel A Godoy DEPT: SURGICAL PATHOLOGY RECD BY: Marco Antonio Clements ENTERED: 11/08/24 08:40 SP TYPE: COLON BX EDDIE DR: Dr. Juan Shearer MD Tissues: A - COLON BIOPSY Procedures: Surgery Specimen Level IV HEADER OPERATION: Colonoscopy PRE-OP DIAGNOSIS: Ulcerative colitis TISSUE SUBMITTED: A- Random colon biopsy MICROSCOPIC DIAGNOSIS A. Large intestine, random, biopsy: * Normal appearing crypts without dysplasia or ulceration * One crypt abscess is present MICROSCOPIC DESCRIPTION Slides are reviewed. GROSS DESCRIPTION A. Received in fixative is one container labeled with the patient's name and designated Random colon biopsy. The specimen consists of multiple irregular fragments of light gomez tissue that in aggregate measure 1.9 x 0.7 x 0.1 cm. The specimen is totally submitted in one cassette. [place] 11/08/2024 CPT:39342
--- NOTE | 2024-11-07 13:45 | PCM.PRE.AN2 ---
ASA Classification* ASA Classification ASA Classification: 3 Assessment & Plan Anesthesia* Anesthesia Assessment Anesthesia Assessment: Discussed sedation and/or anesthesia options, risks, benefits, and alternatives with patient/parents/legal guardian/POA. Questions invited. The patient/parents/legal guardian/POA seems to understand and agrees to proceed with anesthesia plan. Reviewed the physical assessment, medical history, allergy history and patient home medications list prior to surgery/procedure/anesthetic and documented any changes. Performed airway and anesthesia risk assessments. Anesthesia Type Anesthesia Type: MAC History Source History Obtained from:: Patient and Chart Anesthesia Focused Assessment* Temperature: 97.0 F Pulse Rate: 56 Blood Pressure: 139/64 Respiratory Rate: 12 Pulse Ox: 100 Airway Assessment Mouth opens: >3 cm Mallampati Score: II Labs Anesthesia Preop lab: CBC WBC 6.7 K/mm3 (4.4-11.0) 09/04/23 05:09/04/23 RBC 4.28 M/mm3 (4.2-5.4) 09/04/23 05:09/04/23 Hgb 12.0 g/dL (12.0-15.0) 09/04/23 05:41 09/04/23 Hct 38.5 % (37-47) 09/04/23 05:09/04/23 Plt Count 310 K/mm3 (150-450) 09/04/23 05:41 09/04/23 CHEMISTRY Potassium 4.1 mmol/L (3.5-5.1) 09/04/23 05:09/04/23 Sodium 138 mmol/L (136-145) 09/04/23 05:09/04/23 Magnesium 2.3 mg/dL (1.6-2.6) 09/04/23 05:09/04/23 Phosphorus 3.6 mg/dL (2.5-4.9) 09/04/23 05:09/04/23 BUN 15 mg/dL (7-18) 09/04/23 05:41 09/04/23 Creatinine 0.80 mg/dL (0.55-1.02) 09/04/23 05:41 09/04/23 Glucose 126 mg/dL (74-106) H 09/04/23 05:41 09/04/23 POC Glucose 115 mg/dL (74-106) H 11/07/24 11:05 11/07/24 TSH 1.76 uIU/mL (0.358-3.74) 09/04/23 05:41 09/04/23 COAG PT 13.9 SECONDS (11.7-14.9) 09/04/23 05:41 09/04/23 Pre-Assessment Diagnosis/Proposed Procedure Planned Operative Procedure(s): COLONOSCOPY Anesthesia History Anesthesia History - ux ui designer: Anesthesia History - ux ui designer Hx Hospitalization Yes: 08/2023 CHEST PAIN 11/06/24 12:09 Any Problems With Anesthesia Yes: TROUBLE WAKING ME UP 11/06/24 12:09 Cholinesterase deficiency No 11/06/24 12:09 You/Your Family Experience No 11/06/24 12:09 fever (hyperthermia) with Relationship Recent Exposure to Contagious No 11/07/24 11:09 Disease Does patient have nerve No 11/06/24 12:09 stimulator Patient instructed to have device shut off --Does patient have Pacemaker No 11/07/24 11:09 or ICD? When Was Last Pacemaker Check QUESTION #4 FULL TEXT: You/Your Family Experience fever (hyperthermia) with Anesthesia Last Oral Intake Last Oral intake: Last Oral Intake NPO since 00:00 11/07/24 11:09 Meds taken in AM with sips of Yes 11/07/24 11:09 water? Meds patient instructed to take am of surgery PONV PONV - ux ui designer: PONV - ux ui designer Female Yes 11/06/24 12:09 HX of Motion Sickness Yes 11/06/24 12:09 HX of N/V After Surgery No 11/06/24 12:09 Non-Smoker Yes 11/06/24 12:09 Duration of Surgery greater No 11/06/24 12:09 than 60 minutes Number of Risk Factors 3 11/06/24 12:09 PONV Score Moderate Risk 11/06/24 12:09 Height & Weight Height & Weight: Anesthesia: Height & Weight Height 5 ft 6 in 11/07/24 11:09 Weight: 68.4 kg 11/07/24 11:09 Body Mass Index (BMI) 24.3 11/07/24 11:09 Respiratory Assessment Respiratory Assessment - ux ui designer: Respiratory Tract Infection Hx - ux ui designer Hx Respiratory Tract Infection No 11/06/24 12:09 STOP Sleep Apnea STOP Sleep Apnea - ux ui designer: STOP Sleep Apnea - ux ui designer Hx Hypertension Yes 11/06/24 12:09 Hx Sleep Apnea No 11/06/24 12:09 CPAP BIPAP Do you snore loudly (louder No 11/06/24 12:09 than talking or can be heard Do you often feel tired/ No 11/06/24 12:09 fatigued/ sleepy during daytime? Has anyone observed you stop No 11/06/24 12:09 breathing during sleep? STOP Results Negative 11/06/24 12:09 QUESTION #5 FULL TEXT : Do you snore loudly (louder than talking or can be heard through closed doors)? Tobacco Use History Tobacco Use History - ux ui designer: Tobacco Use History - ux ui designer Tobacco Use Smoking Status Never smoker 11/06/24 12:09 Hx Tobacco Use No 11/06/24 12:09 Years Smoking Packs Smoked per Day Smoking Cessation Date was within the last 15 years Hx Smoking Cessation Date Hx Smoking Cessation Counseling Hematologic Medial History Hematologic Hx - ux ui designer: Hematologic Medical Hx - fagot heater Hx of Blood Transfusion No 11/06/24 12:09 Hx of Transfusion in last 3 No 11/06/24 12:09 Months Date of Last Transfusion (if within last 3 months) Ever experience any problems No 11/06/24 12:09 with transfusion(s)? Specify any problems Hx of Preganancy in last 3 No 11/06/24 12:09 Months Nurse Filling Out Transfusion MGRIFFITH 11/06/24 12:09 & Questions: Date: 11/06/24 11/06/24 12:09 Time: 12:12 11/06/24 12:09 Patient unable to answer at this time (ie. confused, unrespo /Reproduction History /Reproductive History - ux ui designer: /Reproductive Hx- ux ui designer Hx Now No 11/06/24 12:09 Gestational Age (in weeks): EDC: Hx Hx Para Hx Section SAB No 11/06/24 12:09 Active Medications Active Medications: Current Medications Generic Name Dose Route Start Last Admin Trade Name Freq PRN Reason Stop Dose Admin Lactated Ringer's 1,000 mls @ 15 mls/hr 11/07/24 11:00 11/07/24 11:17 IV 15 mls/hr .Q48H SOFIA Administration PFSH Medical History Anxiety Low iron Anemia Restless legs History of ulcerative colitis Shortness of breath on exertion History of CHF (congestive heart failure) Post-menopausal Depression Diabetes High cholesterol Back pain Injury of head and neck Gastric reflux Non-smoker Chronic cough History of echocardiogram History of stress test Hypertension History of irregular heartbeat Cardiology follow-up encounter Pulmonary nodule Diarrhea Type 2 diabetes mellitus Rheumatoid arthritis Neurogenic bladder Osteoarthritis HTN (hypertension) HOCM (hypertrophic obstructive cardiomyopathy) History of subdural hematoma History of IN (myocardial infarction) Heart murmur CAD (coronary artery disease) Atelectasis Arthritis Anxiety and depression Home Medications ?Medication ?Instructions ?Recorded ?Last Taken ?Type acetaminophen 500 mg capsule 500 mg PO Q6H PRN Pain 03/17/22 09/02/23 History atorvastatin 80 mg tablet 80 mg PO DAILY 03/17/22 09/02/23 21:00 History citalopram 20 mg tablet 20 mg PO DAILY 03/17/22 11/06/24 History diltiazem HCl 120 mg 120 mg PO BID 03/17/22 11/07/24 History capsule,extended release 24 hr ezetimibe 10 mg tablet 10 mg PO DAILY 03/17/22 11/06/24 History glimepiride 2 mg tablet 2 mg PO DAILY 03/17/22 11/06/24 History lisinopril 10 mg tablet 10 mg PO DAILY 03/17/22 11/06/24 History metformin 500 mg tablet 500 mg PO .1 po qam, 2 po qpm 03/17/22 11/06/24 History putslr-rivxwptt-aeyeyts See Rx Instructions PO .COMPLEX 03/31/23 11/04/24 Rx 40,000-126,000-168,000 unit #720 caps capsule, delay rel (Zenpep) montelukast 10 mg tablet 10 mg PO QHS 04/27/23 09/02/23 21:00 History omeprazole 20 mg capsule,delayed 20 mg PO DAILY 04/27/23 11/07/24 History release cyclobenzaprine 10 mg tablet 10 mg PO BID PRN PRN muscle spasm 09/03/23 08/31/23 History diphenhydramine HCl 25 mg capsule 50 mg PO Q6H PRN allergy 09/03/23 09/03/23 09:00 History (Benadryl) metoprolol tartrate 50 mg tablet 50 mg PO BID 09/03/23 11/07/24 History cholestyramine (with sugar) 4 gram 4 g PO BID #60 ea 06/02/24 11/05/24 Rx powder for susp in a packet Allergy/AdvReac Type Severity Reaction Status Date / Time codeine Allergy Intermediate Shortness Verified 11/07/24 11:07 of breath hydromorphone (From Dilaudid) Allergy Intermediate Other Verified 11/07/24 11:07 tramadol Allergy Intermediate Shortness Verified 11/07/24 11:07 of breath Family History Mother Diabetes Liver cancer Lymphoma Brother COPD (chronic obstructive pulmonary disease) Liver cancer Surgical History History of left knee surgery History of esophagogastroduodenoscopy (EGD) History of colonoscopy History of cardiac catheterization Hx of heart surgery Hx of surgical procedure Hx of breast reduction, elective H/O total hysterectomy History of appendectomy Status post insertion of drug-eluting stent into left anterior descending (LAD) artery for coronary artery disease Social History Smoking Status: Never smoker alcohol intake: current alcohol intake frequency: holidays/special occasions only Review of Systems (Anesthesia) ROS Narrative System reviewed and no additional complaints, except as documented.
--- NOTE | 2024-11-07 14:22 | OP.PROVAT_ITS ---
11/07/2024 Juan Shearer MD Re : Colonoscopy procedure for Slime Magana Dear Dr. Shearer This procedure was performed on Thursday, November 07, 2024. My impressions and recommendations are as follows: Impressions : - Diverticulosis in the recto-sigmoid colon. - Congested mucosa in the entire examined colon. Biopsied. Recommendations : - Discharge patient to home. - Resume previous diet. - Continue present medications. - Await pathology results. - Repeat colonoscopy in 5 years for surveillance based on pathology results. My findings are described in the full procedure note, which is enclosed. If I can be of further assistance, please feel free to contact me at . Sincerely, Miguel A Godoy, 11/07/2024 2:22:18 PM This report has been signed electronically.
--- NOTE | 2024-11-07 14:22 | OP.COLON_ITS ---
Patient Name: Slime Magana Procedure Date: 11/07/2024 1:48 PM Date of : 1950 Age: 74 Procedure: Colonoscopy Indications: Clinically significant diarrhea of unexplained origin Providers: Miguel A Godoy DO Referring MD: Juan Shearer MD Medicines: Monitored Anesthesia Care Patient Profile: This is a 74 year old female. Refer to note in patient chart for documentation of history and physical. Last Colonoscopy: several years ago. Complications: No immediate complications. Procedure: Pre-Anesthesia Assessment: - Prior to the procedure, a History and Physical was performed, and patient medications and allergies were reviewed. The patient is competent. The risks and benefits of the procedure and the sedation options and risks were discussed with the patient. All questions were answered and informed consent was obtained. Patient identification and proposed procedure were verified by the physician in the pre-procedure area. Mental Status Examination: alert and oriented. Airway Examination: normal oropharyngeal airway and neck mobility. Respiratory Examination: clear to auscultation. CV Examination: normal. Prophylactic Antibiotics: The patient does not require prophylactic antibiotics. Prior Anticoagulants: The patient has taken no anticoagulant or antiplatelet agents except for aspirin. ASA Grade Assessment: II - A patient with mild systemic disease. After reviewing the risks and benefits, the patient was deemed in satisfactory condition to undergo the procedure. The anesthesia plan was to use monitored anesthesia care (MAC). Immediately prior to administration of medications, the patient was re-assessed for adequacy to receive sedatives. The heart rate, respiratory rate, oxygen saturations, blood pressure, adequacy of pulmonary ventilation, and response to care were monitored throughout the procedure. The physical status of the patient was re-assessed after the procedure. After I obtained informed consent, the scope was passed under direct vision. Throughout the procedure, the patient's blood pressure, pulse, and oxygen saturations were monitored continuously. The Colonoscope was introduced through the anus and advanced to the terminal ileum. The colonoscopy was performed without difficulty. The patient tolerated the procedure well. The quality of the bowel preparation was adequate. The ileocecal valve, appendiceal orifice, and rectum were photographed. Scope In: 1:58:33 PM Scope Withdrawal Time 0 hours 11 minutes 15 seconds Scope Out: 2:14:38 PM Total Procedure Duration Time 0 hours 16 minutes 5 seconds Findings: The perianal and digital rectal examinations were normal. Two small-mouthed diverticula were found in the recto-sigmoid colon. Retroflexion in the rectum was not performed due to anatomy. An area of mildly congested mucosa was found in the entire colon. Biopsies were taken with a cold forceps for histology. Verification of patient identification for the specimen was done. Estimated blood loss was minimal. Impression: - Diverticulosis in the recto-sigmoid colon. - Congested mucosa in the entire examined colon. Biopsied. Recommendation: - Discharge patient to home. - Resume previous diet. - Continue present medications. - Await pathology results. - Repeat colonoscopy in 5 years for surveillance based on pathology results. Procedure Code(s): --- Professional --- 82239, Colonoscopy, flexible; with biopsy, single or multiple CPT copyright 2021 [employer]. All rights reserved. The codes documented in this report are preliminary and upon inspector conveyor line review may be revised to meet current compliance requirements. Miguel A Godoy DO 11/07/2024 2:22:18 PM This report has been signed electronically. Number of Addenda: 0 Note Initiated On: 11/07/2024 1:48 PM
--- NOTE | 2024-11-07 14:25 | PCM.POST.ANE ---
Anesthesia: Postop Eval I Current Vital Signs Temperature: 97.2 F Pulse Rate: 56 Blood Pressure: 125/55 Respiratory Rate: 16 Pulse Ox: 96 Oxygen Delivery Method: Room Air Assessment Airway patent: Yes Spontaneous unlabored respirations: Yes Mental status: Awake and Calm nausea: No Vomiting: No Anesthesia Complication: No Fluid Hydration Crystalloid volume administer (ml): 500 Total IV fluid infused: 500 Progress Note Anesthesia document: Postop Eval 1 completed: Yes
== END 2024-11-07 15:00 | disposition home or self-care (01) ==
LOC: EN 10:42 → AC 10:45
PROVIDERS: PCP Family Medicine; Referring Provider Family Medicine; Visit Provider Internal Medicine Gastroenterology
PROC: 0DJD8ZZ Inspection of Lower Intestinal Tract, Via Natural or Artificial Opening Endoscopic (ICD-10-PCS; CPT 45378; principal; 2024-11-07 12:55)
DX: K51.00 Ulcerative (chronic) pancolitis without complications (principal); I11.0 Hypertensive heart disease with heart failure; I50.9 Heart failure, unspecified; E11.42 Type 2 diabetes mellitus with diabetic polyneuropathy; K62.3 Rectal prolapse; K21.9 Gastro-esophageal reflux disease without esophagitis; K57.90 Diverticulosis of intestine, part unspecified, without perforation or abscess without bleeding; I25.10 Atherosclerotic heart disease of native coronary artery without angina pectoris; Z90.710 Acquired absence of both cervix and uterus; Z79.84 Long term (current) use of oral hypoglycemic drugs; E78.00 Pure hypercholesterolemia, unspecified; I25.2 Old myocardial infarction; F41.8 Other specified anxiety disorders; Z79.899 Other long term (current) drug therapy; K86.89 Other specified diseases of pancreas; N81.10 Cystocele, unspecified; Z86.0100 Personal history of colon polyps, unspecified; K63.89 Other specified diseases of intestine
CPT/HCPCS: 45380; 82962; 88305; J2405

== ENCOUNTER 2025-01-03 15:06 | Emergency (ER) | payer MEDICARE, SELFPAY ==
[2025-01-03] VITALS (7 sets, daily range): BP systolic 120–151; BP diastolic 63–97; PULSE 77–102; RESP 12–22; TEMP 36.3–36.8; O2SAT 96–99; BMI 24.9
--- NOTE | 2025-01-03 15:10 | EKG12_ITS ---
Test Reason : SOB Blood Pressure : */* mmHG Vent. Rate : 97 BPM Atrial Rate : 97 BPM P-R Int : 144 ms QRS Dur : 138 ms QT Int : 388 ms P-R-T Axes : 54 -31 122 degrees QTcB Int : 492 ms Normal sinus rhythm Left axis deviation Left bundle branch block Abnormal ECG Confirmed by JOSE LOUISE, YURIDIA ([id number]), research editor DINA STANFORD ([id number]) on 01/04/2025 9:53:39 AM Referred By: Confirmed By: YURIDIA GARCIA MD
[2025-01-03 15:26] LABS: Hematocrit 37.9 % (37-47); Hemoglobin 12.7 g/dL (12.0-15.0); Immature Granulocytes Count 0.100 X10^3/uL (0.0-0.0); Mean Corp Hgb Conc 33.5 g/dL (32-36); Mean Corpuscular Volume 89.6 fL (81-99); Mean Platelet Vol. 9.0 fl (6.2-12.0); NRBC Flagged by Analyzer 0 % (0-5); Platelet Count 324 K/mm3 (150-450); RBC Distribution Width CV 13.9 % (11.6-14.6); RBC Distribution Width SD 45.1 fl (35.1-43.9); Red Blood Count 4.23 M/mm3 (4.2-5.4); White Blood Count 9.9 K/mm3 (4.4-11.0)
[2025-01-03 15:53] LABS: Anion Gap 14 (5-15); BUN 20 mg/dL (4-19); BUN/Creat Ratio 13.9 RATIO (10-20); Calcium,Total 9.1 mg/dL (7.6-11.0); Carbon Dioxide 21.3 mmol/L (21.0-32.0); Chloride 97 mmol/L (98-108); Estimated Creatinine Clearance 32.05 ml/min (50-250); Glucose 319 mg/dL (70-99); Potassium 4.5 mmol/L (3.3-5.1); Troponin T High Sensitivity 26 ng/L (<=14)
--- NOTE | 2025-01-03 15:57 | ED.VIS.DYS ---
HPI History of Present Illness Chief Complaint: Shortness of Breath Informant: patient Onset/Context/Timing Onset: Yesterday Context: gradual Timing: Continuous Quality: Positive for Dyspnea on exertion Worsened by: Exertion and Lying flat Relieved by: Nothing Associated Symptoms Negative for cough, rhinorrhea, post nasal drip, ear pain, fever, sore throat, chills, sweats, clear sputum, white sputum, yellow sputum or green sputum Chest Pain: Positive for - (Heaviness) Narrative Narrative: Patient presents with shortness of breath that began yesterday after taking a dose of tizanidine for her sciatica. Patient states it came on gradually. Patient states it has been constant. Patient states it is worse with any exertion or with laying flat. Patient denies any wheezing. Patient states nothing makes it better. Patient denies any cough. Patient admits to some heaviness across her upper chest. Patient denies any rhinorrhea. Patient denies any fevers or chills. Patient denies any sore throat or ear pain. Patient denies any recent travel or recent surgery. Patient denies any history of DVT or PE. Patient denies any history of cancer. PE Risk Factors: Negative for Cancer, OCP + Smoking + > 35, Prior DVT or PE, Recent immobilization, Recent surgery or Recent travel [facility] Medical History Anxiety Low iron Anemia Restless legs History of ulcerative colitis Shortness of breath on exertion History of CHF (congestive heart failure) Post-menopausal Depression Diabetes High cholesterol Back pain Injury of head and neck Gastric reflux Non-smoker Chronic cough History of echocardiogram History of stress test Hypertension History of irregular heartbeat Cardiology follow-up encounter Pulmonary nodule Diarrhea Type 2 diabetes mellitus Rheumatoid arthritis Neurogenic bladder Osteoarthritis HTN (hypertension) HOCM (hypertrophic obstructive cardiomyopathy) History of subdural hematoma History of NV (myocardial infarction) Heart murmur CAD (coronary artery disease) Atelectasis Arthritis Anxiety and depression Home Medications ?Medication ?Instructions ?Recorded ?Last Taken ?Type acetaminophen 500 mg capsule 500 mg PO Q6H PRN Pain 03/17/22 09/02/23 History atorvastatin 80 mg tablet 80 mg PO DAILY 03/17/22 09/02/23 21:00 History citalopram 20 mg tablet 20 mg PO DAILY 03/17/22 11/06/24 History diltiazem HCl 120 mg 120 mg PO BID 03/17/22 11/07/24 History capsule,extended release 24 hr ezetimibe 10 mg tablet 10 mg PO DAILY 03/17/22 11/06/24 History glimepiride 2 mg tablet 2 mg PO DAILY 03/17/22 11/06/24 History lisinopril 10 mg tablet 10 mg PO DAILY 03/17/22 11/06/24 History metformin 500 mg tablet 500 mg PO .1 po qam, 2 po qpm 03/17/22 11/06/24 History lidofi-jtoubilh-utpibuf See Rx Instructions PO .COMPLEX 03/31/23 11/04/24 Rx 40,000-126,000-168,000 unit #720 caps capsule, delay rel (Zenpep) montelukast 10 mg tablet 10 mg PO QHS 04/27/23 09/02/23 21:00 History omeprazole 20 mg capsule,delayed 20 mg PO DAILY 04/27/23 11/07/24 History release cyclobenzaprine 10 mg tablet 10 mg PO BID PRN PRN muscle spasm 09/03/23 08/31/23 History diphenhydramine HCl 25 mg capsule 50 mg PO Q6H PRN allergy 09/03/23 09/03/23 09:00 History (Benadryl) metoprolol tartrate 50 mg tablet 50 mg PO BID 09/03/23 11/07/24 History cholestyramine (with sugar) 4 gram 4 g PO BID #60 ea 06/02/24 11/05/24 Rx powder for susp in a packet mesalamine 1.2 gram tablet,delayed 2.4 g (2 x 1.2 gram) PO BID 3 11/23/24 Unknown Rx release (Lialda) months #360 tabs sulfasalazine 500 mg tablet 1 g (2 x 500 mg) PO BID #120 tabs 11/27/24 Unknown Rx folic acid 1 mg tablet 1 mg PO DAILY #30 TABLETS 12/26/24 Unknown Rx Allergy/AdvReac Type Severity Reaction Status Date / Time codeine Allergy Intermediate Shortness Verified 01/03/25 15:06 of breath hydromorphone (From Dilaudid) Allergy Intermediate Other Verified 01/03/25 15:06 tramadol Allergy Intermediate Shortness Verified 01/03/25 15:06 of breath Family History Mother Diabetes Liver cancer Lymphoma Brother COPD (chronic obstructive pulmonary disease) Liver cancer Surgical History History of left knee surgery History of esophagogastroduodenoscopy (EGD) History of colonoscopy History of cardiac catheterization Hx of heart surgery Hx of surgical procedure Hx of breast reduction, elective H/O total hysterectomy History of appendectomy Status post insertion of drug-eluting stent into left anterior descending (LAD) artery for coronary artery disease Social History Smoking Status: Never smoker alcohol intake: current alcohol intake frequency: holidays/special occasions only ROS ROS ED Constitutional Constitutional ED: Reports sweats; Denies chills or fever(s) Eyes Eyes: Denies blurry vision or change in vision ENT ENT ED: Denies rhinorrhea or sore throat Cardiovascular Cardiovascular: Reports chest pain; Denies palpitations Respiratory/Chest Respiratory/Chest: Reports dyspnea; Denies cough Gastrointestinal Gastrointestinal: Denies nausea or vomiting Genitourinary Genitourinary ED: Reports urinary frequency; Denies dysuria or hematuria Musculoskeletal Musculoskeletal: Denies back pain or neck pain Integumentary Denies abscess or rash Neurologic Neurologic: Denies headache(s) or weakness Allergic/Immunologic Allergic/Immunologic ED: Denies mouth swelling or urticaria EXAM Physical Exam Const Vital Signs: 01/03/25 15:06 01/03/25 15:09 01/03/25 15:09 Temperature 97.4 F L 97.4 F L Temperature Source Temporal Temporal Pulse Rate 102 H 102 H Respiratory Rate 22 H 22 H Respiratory Effort Respiratory Depth Respiratory Pattern Blood Pressure 120/63 120/63 Blood Pressure Mean 82 82 Pulse Ox 99 99 98 Oxygen Delivery Method Room Air Room Air Room Air 01/03/25 15:09 01/03/25 16:06 01/03/25 16:09 Temperature 97.4 F L Temperature Source Oral Pulse Rate 86 85 Respiratory Rate 16 Respiratory Effort Respiratory Depth Respiratory Pattern Blood Pressure 144/72 H 144/72 H Blood Pressure Mean 96 96 Pulse Ox 98 98 97 Oxygen Delivery Method Room Air Room Air Room Air 01/03/25 16:38 01/03/25 17:00 01/03/25 17:00 Temperature 97.4 F L Temperature Source Oral Pulse Rate 87 Respiratory Rate 16 Respiratory Effort Normal Non-Labored Respiratory Depth Normal Respiratory Pattern Normal Blood Pressure 133/67 H 133/97 H Blood Pressure Mean 89 109 Pulse Ox 96 Oxygen Delivery Method Room Air Room Air 01/03/25 18:00 Temperature 98.3 F Temperature Source Oral Pulse Rate 77 Respiratory Rate 12 Respiratory Effort Respiratory Depth Respiratory Pattern Blood Pressure 151/71 H Blood Pressure Mean 97 Pulse Ox 97 Oxygen Delivery Method Room Air Positive well nourished and well developed General Appearance ED: well developed and NAD HEENT Reports moist mucous membranes Neck supple and no JVD Resp normal respiratory effort and clear to auscultation bilaterally Cardio regular rate and regular rhythm GI non-tender and non-distended Palpation: soft Extremity General Extremety ED: Negative for edema or tenderness General Extremity: Negative for edema Neuro oriented x3, CN's II-XII intact bilaterally and no sensory deficits noted [place] Coma Scale: document GCS findings Spontaneous Obeys Commands Oriented 15 Sensorium / Orientation: alert Speech: speech normal Motor Exam: strength 5/5 throughout Psych mental status grossly normal MDM MDM MDM Narrative Medical decision making narrative: Differential diagnosis includes cardiac dysrhythmia, cardiac ischemia, congestive heart failure, pneumonia, bronchitis, electrolyte abnormality, dehydration, medication side effect, gastroesophageal reflux disease, and anxiety. EKG will be obtained to assess for cardiac dysrhythmia and cardiac ischemia. Chest x-ray will be obtained to assess for pneumonia or bronchitis. CBC will be obtained to assess for leukocytosis and anemia. Basic metabolic profile will be obtained to assess for electrolyte abnormality renal function. High-sensitivity troponin will be obtained to assess for cardiac ischemia. 2-hour repeat high-sensitivity troponin will be obtained to assess for ongoing cardiac ischemia. Lab Data Attestation: I reviewed the patient's lab results. Lab results narrative: CBC was reviewed and was within normal limits. Basic metabolic profile was reviewed. BUN was slightly elevated at 20 and creatinine was slightly elevated at 1.42. These are increased from previous results. Glucose was elevated at 319. Initial high-sensitivity troponin was reviewed and was 26. 2-hour repeat high-sensitivity troponin was reviewed and was 25. Labs: Laboratory Results - last 24 hr 01/03/25 01/03/25 15:13 17:08 WBC 9.9 RBC 4.23 Hgb 12.7 Hct 37.9 MCV 89.6 MCH 30.0 MCHC 33.5 RDW Std Deviation 45.1 H RDW Coeff of [place] 13.9 Plt Count 324 MPV 9.0 Immature Gran % (Auto) 1.000 H Neut % (Auto) 78.0 H Lymph % (Auto) 16.8 L [place] % (Auto) 3.8 Eos % (Auto) 0.2 Baso % (Auto) 0.2 Absolute Neuts (auto) 7.7 Absolute Lymphs (auto) 1.66 Nucleated RBC % 0 Sodium 133 Potassium 4.5 Chloride 97 L Carbon Dioxide 21.3 Anion Gap 14 BUN 20 H Creatinine 1.42 H Estim Creat Clear Calc 32.05 L Est GFR (MDRD) Non-Af 39 L BUN/Creatinine Ratio 13.9 Glucose 319 H Calcium 9.1 Troponin T High Sens 26 H Troponin T Hi Sens 2 Hr 25 H Radiography Chest X-Ray - ED: 2 View, Read by ED Physician, Read by Radiologist and No Acute Disease Diagnostic Testing: Clinical Impression(s) from Imaging Studies Chest X-Ray 01/03/25 16:33 IMPRESSION: NO ACUTE FINDINGS. Reading Location: [address] [place] and lateral chest x-ray was obtained. There are 2 views. On my independent interpretation, lung celis are clear. There is normal cardiac silhouette. Bony thorax is normal. There is no acute process noted. Radiologist also interpreted the x-ray and agrees. EKG Initial EKG: Attestation: I personally reviewed and interpreted this EKG as follows: Interpretation: Sinus Rhythm (97), No Acute Injury Pattern and LBBB Comments: EKG was obtained. On my independent interpretation, shows normal sinus rhythm with a rate of 97. MA interval was normal at 144 ms. QRS interval was prolonged at 138 ms. QTc interval was normal at 492 ms. There is left axis deviation at -31. There is a left bundle branch block pattern noted. There is no acute abnormality noted. Prior EKG tracings: available for review Prior: Unchanged (09/03/2023) Treatment and Re-Evaluation :: Patient was feeling better. Patient wants to go home. Patient was advised of her findings. Patient was instructed to stop her tizanidine. Patient was advised that this may be what is causing her symptoms. Patient was instructed to follow-up with her primary care physician in 5 to 7 days. Patient was instructed to return if worse in any way. Patient understood and was agreeable with the plan. All questions were answered. Discharge Plan Triage Chief Complaint: Shortness of Breath ED Provider: Lincoln Ying Dx/Rx/DC Orders Clinical Impression: Dyspnea, Hypertension Instructions: ED Dyspnea Prescriptions: No Action diltiazem HCl 120 mg capsule,extended release 24hr 120 mg PO BID acetaminophen 500 mg capsule 500 mg PO Q6H PRN (Reason: Pain) lisinopril 10 mg tablet 10 mg PO DAILY ezetimibe 10 mg tablet 10 mg PO DAILY metformin 500 mg tablet 500 mg PO .1 po qam, 2 po qpm citalopram 20 mg tablet 20 mg PO DAILY glimepiride 2 mg tablet 2 mg PO DAILY atorvastatin 80 mg tablet 80 mg PO DAILY omeprazole 20 mg capsule,delayed release(DR/EC) 20 mg PO DAILY Patient Comments: take 1 capsule by mouth every morning 30 MINUTES before breakfast montelukast 10 mg tablet 10 mg PO QHS Patient Comments: take 1 tablet by mouth at bedtime metoprolol tartrate 50 mg tablet 50 mg PO BID cyclobenzaprine 10 mg tablet 10 mg PO BID PRN PRN (Reason: muscle spasm) diphenhydramine HCl [Benadryl] 25 mg capsule 50 mg PO Q6H PRN (Reason: allergy) Zenpep 40,000-126,000- 168,000 unit capsule,delayed release(DR/EC) See Rx Instructions PO .COMPLEX Qty: 720 2RF Rx Instructions: take 1-2 with snacks and 2-3 with meals. EPI K86.81. Please utilize copay card. cholestyramine (with sugar) 4 gram powder in packet 4 g PO BID Qty: 60 3RF Rx Instructions: administer w/meal; avoid other meds within 1hr before or 4-6hr after dose mesalamine [Lialda] 1.2 gram tablet,delayed release (DR/EC) 2.4 g PO BID 90 Days Qty: 360 0RF sulfasalazine 500 mg tablet 1 g PO BID Qty: 120 2RF Rx Instructions: give with food (meal/snack) folic acid 1 mg tablet 1 mg PO DAILY Qty: 30 2RF Primary Care Provider: Juan Shearer Referrals: Juan Shearer MD [Primary Care Provider, Family Practice] - 5-7 Days Print Language: Sinhala Disposition Disposition: Home, Self Care
--- NOTE | 2025-01-03 16:33 | RAD_ITS ---
PROCEDURE: CHEST PA AND LATERAL 01/03/2025 REASON FOR EXAM: DYSPNEA TECHNIQUE: Procedure Code: RADCXR Modality: DX Procedure: CHEST PA AND LATERAL FINDINGS: Prior sternotomy. Elevation of the right hemidiaphragm. The heart is normal in size. The lungs are clear. No acute osseous abnormalities. RAD/Chest PA and Lateral IMPRESSION: NO ACUTE FINDINGS. Reading Location: [id number]
[2025-01-03 18:24] LABS: Troponin T High Sens 2 HR 25 ng/L (<=14)
== END 2025-01-03 19:13 | disposition home or self-care (01) ==
PROVIDERS: Emergency Provider Emergency Medicine; PCP Family Medicine; Visit Provider Emergency Medicine
DX: R06.00 Dyspnea, unspecified (principal); I11.0 Hypertensive heart disease with heart failure; I50.9 Heart failure, unspecified; I42.1 Obstructive hypertrophic cardiomyopathy; E11.9 Type 2 diabetes mellitus without complications; I25.10 Atherosclerotic heart disease of native coronary artery without angina pectoris; E78.00 Pure hypercholesterolemia, unspecified; R35.0 Frequency of micturition; M54.30 Sciatica, unspecified side; Z79.84 Long term (current) use of oral hypoglycemic drugs; Z79.899 Other long term (current) drug therapy
CPT/HCPCS: 71046; 80048; 84484; 85025; 93005; 94760; 99283; A4216